=== PATIENT | male | born 1965 | race Caucasian/White ===

== ENCOUNTER 2017-11-02 05:32 | Emergency (ER) | payer OTHER ==
[2017-11-02 06:17] LABS: Absolute Lymphocytes (CBC) 1.7 K/uL (0.7-4.9); Absolute Monocytes 1.2 K/uL (0.1-1.3); Absolute Neutrophil 6.8 K/uL (1.8-8.0); Basophils % 0.6 % (0-1.3); Eosinophils % 3.3 % (0-4.4); Hematocrit 34.4 % (39.6-49.0); Lymphocytes % 16.9 % (15.3-44.8); MCH 29.9 pg (27.0-35.0); MCV 88.8 fL (80-100); MPV 7.3 fL (7.6-11.3); Monocytes % 11.7 % (3.3-12.3); RBC Red Blood Cell Count 3.88 M/uL (4.33-5.43)
[2017-11-02 06:22] LABS: Protime INR 1.04
[2017-11-02 06:28] LABS: Bicarbonate 25 mEq/L (21-31); Glucose Level 153 mg/dL (65-120); Lipase 105 U/L (22-51); Potassium 3.7 mEq/L (3.6-5.0); Sodium Level 138 mEq/L (135-145)
[2017-11-02 06:34] LABS: ALT/SGPT 16 IU/L (10-60); AST/SGOT 19 IU/L (10-42); Albumin 3.7 g/dL (3.2-5.5); Alkaline Phosphatase 45 IU/L (42-121); BUN Blood Urea Nitrogen 12 mg/dL (6-20); Bilirubin Direct < 0.1 mg/dL (0-0.2); Bilirubin Total 0.5 mg/dL (0.3-1.2); Protein, Total 7.1 g/dL (6.0-8.3)
--- NOTE | 2017-11-02 08:21 | RAD REPORT ---
EXAM DESCRIPTION: CT - Abdomen Pelvis W Contrast - 11/02/2017 7:53 am CLINICAL HISTORY: Abdominal pain, bloody stools COMPARISON: None. TECHNIQUE: Biphasic, helical CT imaging of the abdomen and pelvis was performed following 100 ml non -ionic IV contrast. Oral contrast was given. All CT scans are performed using dose optimization technique as appropriate and may include automated exposure control or mA/KV adjustment according to patient size. FINDINGS: No suspicious findings in the lung bases. The liver, spleen, and pancreas show no suspicious findings. Gallbladder and biliary tree are also wi thout suspicious finding. Symmetric renal function is seen with no hydronephrosis or suspicious renal mass. No pyelonephritis o r acute renal parenchymal process. A 3 centimeter cyst is present lower pole right kidney. Partially filled urinary bladder shows no suspicious finding. Prostate gland and seminal vesicles within normal limits. No significant adrenal finding. No gastric dilatation or wall thickening. No acute small bowel finding identifiable. There is no appe ndicitis. Minimal wall thickening near the hepatic flexure of the colon could be peristalsis artifact or a minimal colitis. There is minimal wall thickening near the splenic flexure in short segment are a of mild wall thickening in the sigmoid colon where there is also minimal stranding in the adjacent fat. Patient has numerous small central mesenteric lymph nodes as well as several small lymph nodes i n the mesenteric fat adjacent to the colon. No measurable diverticulosis pattern. No one area of foca l colon mass suspected. No free air, free fluid or pneumatosis. No other areas of inflammatory stranding. No hernia, mass or bulky lymphadenopathy. No suspicious bony findings. IMPRESSION: Mild scattered areas of colitis from the hepatic flexure to sigmoid colon. There are adj acent small mesenteric lymph nodes. No colon mass identified. No free air, abscess or other complicating factor.
--- NOTE | 2017-11-02 08:56 | ER ---
Nurse's Notes [facility] Name: Pedro Mejia Age: 52 yrs Sex: Male : 1965 Arrival Date: 11/02/2017 Time: 05:33 Bed 7 Private MD: Diagnosis: Diarrhea, unspecified Presentation: 11/02 05:43 Presenting complaint: Patient states: diarrhea and blood in stool x 3 days. Transition aa1 of care: patient was not received from another setting of care. Onset of symptoms was October 30, 2017. Initial Sepsis Screen: Does the patient meet any 2 criteria? No. Patient's initial sepsis screen is negative. Does the patient have a suspected source of infection? No. Patient's initial sepsis screen is negative. Care prior to arrival: None. 05:43 Method Of Arrival: Ambulatory aa1 05:43 Acuity: EL 3 aa1 Triage Assessment: 05:47 General: Appears in no apparent distress. comfortable, Behavior is calm, cooperative, aa1 appropriate for age. Historical: - Allergies: 05:47 No Known Allergies; aa1 - Home Meds: 05:47 Metformin Oral [Active]; aa1 - PMHx: 05:47 Hypertension; Diabetes - NIDDM; aa1 - PSHx: 05:47 None; aa1 - Immunization history:: Flu vaccine is not up to date. - Social history:: Smoking status: Patient/guardian denies using tobacco. Screenin:06 Abuse screen: Denies threats or abuse. Nutritional screening: No deficits noted. jd3 Tuberculosis screening: No symptoms or risk factors identified. Fall Risk IV access (20 points). Mental Status- Oriented to own ability (0 pts). Total Gil Fall Scale indicates No Risk (0-24 pts). Assessment: 05:50 General: Appears in no apparent distress. uncomfortable, Behavior is calm, cooperative, jd3 appropriate for age. Pain: Complains of pain in suprapubic area Quality of pain is described as crampy, pressure. Neuro: Level of Consciousness is awake, alert, obeys commands, Oriented to person, place, time, situation. Cardiovascular: Heart tones S1 S2 present Capillary refill < 3 seconds Patient's skin is warm and dry. Respiratory: Airway is patent Respiratory effort is even, unlabored, Respiratory pattern is regular, symmetrical, Breath sounds are clear bilaterally. GI: Abdomen is round Bowel sounds present X 4 quads. Abd is soft and non tender X 4 quads. Reports bloody stool, nausea. : No signs and/or symptoms were reported regarding the genitourinary system. EENT: No signs and/or symptoms were reported regarding the EENT system. Derm: Skin is intact, Skin is dry, Skin is normal, Skin temperature is warm. Musculoskeletal: Circulation, motion, and sensation intact. Range of motion: intact in all extremities. 06:05 Reassessment: CT notified of pt finishing oral contrast. jd3 07:00 Reassessment: Patient appears in no apparent distress at this time. Patient and/or hb family updated on plan of care and expected duration. Pain level reassessed. Patient is alert, oriented x 3, equal unlabored respirations, skin warm/dry/pink. 08:33 Reassessment: Patient appears in no apparent distress at this time. Patient is alert, sg oriented x 3, equal unlabored respirations, skin warm/dry/pink. taryn STRICKLAND at bedside updating pt and pt family on results and POC at this time, awaiting dispo orders, will continue to monitor. Vital Signs: 05:47 BP 155 / 101; Pulse 95; Resp 18; Temp 98.3; Pulse Ox 97% on R/A; Weight 124.74 kg; aa1 Height 6 ft. 0 in. (182.88 cm); Pain 2/10; 07:00 BP 151 / 100; Pulse 85; Resp 17; Pulse Ox 96% on R/A; sg 07:37 BP 148 / 82; Pulse 82; Resp 15; Pulse Ox 100% on R/A; hb 09:00 BP 135 / 89; Pulse 75; Resp 16; Pulse Ox 97% on R/A; Pain 0/10; sg 05:47 Body Mass Index 37.30 (124.74 kg, 182.88 cm) aa1 ED Course: 05:33 Patient arrived in ED. al2 05:45 Raúl Cuevas, JOAQUINA is Primary Nurse. jd3 05:45 Triage completed. aa1 05:47 Arm band placed on right wrist. Patient placed in an exam room, on a stretcher. aa1 05:55 Inserted saline lock: 20 gauge in right antecubital area, using aseptic technique. jd3 Blood collected. 06:00 Taryn Bateman NP is PHCP. pm1 06:00 Vaibhav Gardner MD is Attending Physician. pm1 06:06 Patient has correct armband on for positive identification. Bed in low position. Call jd3 light in reach. Side rails up X 1. Adult w/ patient. 07:31 Primary Nurse role handed off by Raúl Cuevas, JOAQUINA 07:31 Bridger Nelson, RN is Primary Nurse. sg 07:50 CT completed. Patient tolerated procedure well. Patient moved to CT via wheelchair. vm2 Patient moved back from CT. 07:53 CT Abd/Pelvis - W/Contrast In Process Unspecified. EDMS 08:32 Awaiting radiology results. sg 08:56 Kahlil Mccrary MD is Referral Physician. pm1 09:03 No provider procedures requiring assistance completed. IV discontinued, intact, hb bleeding controlled, No redness/swelling at site. Pressure dressing applied. Administered Medications: No medications were administered Outcome: 08:56 Discharge ordered by MD. pm1 09:03 Discharged to home ambulatory, with significant other. hb 09:03 Condition: stable 09:03 Discharge instructions given to patient, significant other, Instructed on discharge instructions, follow up and referral plans. medication usage, Demonstrated understanding of instructions, follow-up care, medications, Prescriptions given X 1. 09:04 Patient left the ED. hb Signatures: Dispatcher [employer] EDMO Bridger Nelson, RN JOAQUINA Delphine Jacobson RN RN aa1 Taryn Bateman NP COUTURIERE pm1 Latonya Johnson RN RN Joslyn Ruffin 2 Raúl Cuevas RN RN jd3 Love, Angelica al2
--- NOTE | 2017-11-02 08:56 | EDPHYS ---
Physician Documentation [facility] Name: Pedro Mejia Age: 52 yrs Sex: Male : 1965 Arrival Date: 11/02/2017 Time: 05:33 Bed 7 Private MD: ED Physician Vaibhav Gardner HPI: 11/02 06:21 This 52 yrs old Male presents to ER via Ambulatory with complaints of Bloody pm1 diarrhea. 06:22 The patient presents to the emergency department with diarrhea, 6 times today. Onset: pm1 The symptoms/episode began/occurred 3 day(s) ago. Possible causes: unknown. The symptoms are aggravated by nothing. The symptoms are alleviated by nothing. Associated signs and symptoms: Pertinent positives: Abdominal cramping with bowel movement, Pertinent negatives: constipation, fever, nausea, vomiting. Severity of symptoms: in the emergency department the symptoms No pain. Lower abdominal cramping present only with diarrhea. The patient has experienced similar episodes in the past, a few times, Onset 1 year ago, 6 months, and 2-3 weeks ago that self resolved. Not evaluated by a physician. The patient has not recently seen a physician, the patient's primary care provider is Dr. Charbel Bryant. 06:22 Blood present with wiping and a drop of blood in the toilet. pm1 Historical: - Allergies: 05:47 No Known Allergies; aa1 - Home Meds: 05:47 Metformin Oral [Active]; aa1 - PMHx: 05:47 Hypertension; Diabetes - NIDDM; aa1 - PSHx: 05:47 None; aa1 - Immunization history:: Flu vaccine is not up to date. - Social history:: Smoking status: Patient/guardian denies using tobacco. ROS: 06:24 Constitutional: Negative for fever, chills, and weight loss, Eyes: Negative for injury, pm1 pain, redness, and discharge, ENT: Negative for injury, pain, and discharge, Neck: Negative for injury, pain, and swelling, Cardiovascular: Negative for chest pain, palpitations, and edema, Respiratory: Negative for shortness of breath, cough, wheezing, and pleuritic chest pain. 06:24 Back: Negative for injury and pain, : Negative for injury, bleeding, discharge, and swelling, MS/Extremity: Negative for injury and deformity, Skin: Negative for injury, rash, and discoloration, Neuro: Negative for headache, weakness, numbness, tingling, and seizure. 06:24 Abdomen/GI: Positive for abdominal cramps, with diarrhea episodes, Negative for nausea and vomiting, constipation. Exam: 06:26 Constitutional: This is a well developed, well nourished patient who is awake, alert, pm1 and in no acute distress. Head/Face: Normocephalic, atraumatic. Eyes: Pupils equal round and reactive to light, extra-ocular motions intact. Lids and lashes normal. Conjunctiva and sclera are non-icteric and not injected. Cornea within normal limits. Periorbital areas with no swelling, redness, or edema. ENT: Nares patent. No nasal discharge, no septal abnormalities noted. Tympanic membranes are normal and external auditory canals are clear. Oropharynx with no redness, swelling, or masses, exudates, or evidence of obstruction, uvula midline. Mucous membranes moist. Neck: Trachea midline, no thyromegaly or masses palpated, and no cervical lymphadenopathy. Supple, full range of motion without nuchal rigidity, or vertebral point tenderness. No Meningismus. Chest/axilla: Normal chest wall appearance and motion. Nontender with no deformity. No lesions are appreciated. Cardiovascular: Regular rate and rhythm with a normal S1 and S2. No gallops, murmurs, or rubs. Normal PMI, no JVD. No pulse deficits. Respiratory: Lungs have equal breath sounds bilaterally, clear to auscultation and percussion. No rales, rhonchi or wheezes noted. No increased work of breathing, no retractions or nasal flaring. 06:26 Back: No spinal tenderness. No costovertebral tenderness. Full range of motion. Skin: Warm, dry with normal turgor. Normal color with no rashes, no lesions, and no evidence of cellulitis. MS/ Extremity: Pulses equal, no cyanosis. Neurovascular intact. Full, normal range of motion. 06:26 Abdomen/GI: Inspection: abdomen appears normal, Bowel sounds: normal, in all quadrants, Palpation: abdomen is soft and non-tender, mass, is not appreciated, rebound tenderness, is not appreciated. 06:26 Neuro: Orientation: is normal, Mentation: is normal, Motor: is normal, moves all fours, Sensation: is normal, no obvious gross deficits. Vital Signs: 05:47 BP 155 / 101; Pulse 95; Resp 18; Temp 98.3; Pulse Ox 97% on R/A; Weight 124.74 kg; aa1 Height 6 ft. 0 in. (182.88 cm); Pain 2/10; 07:00 BP 151 / 100; Pulse 85; Resp 17; Pulse Ox 96% on R/A; sg 07:37 BP 148 / 82; Pulse 82; Resp 15; Pulse Ox 100% on R/A; hb 09:00 BP 135 / 89; Pulse 75; Resp 16; Pulse Ox 97% on R/A; Pain 0/10; sg 05:47 Body Mass Index 37.30 (124.74 kg, 182.88 cm) aa1 MDM: 06:21 Patient medically screened. pm1 08:55 Data reviewed: vital signs. Data interpreted: Pulse oximetry: on room air is 100 %. pm1 Interpretation: normal. Counseling: I had a detailed discussion with the patient and/or guardian regarding: the historical points, exam findings, and any diagnostic results supporting the discharge/admit diagnosis, lab results, radiology results, the need for outpatient follow up, to return to the emergency department if symptoms worsen or persist or if there are any questions or concerns that arise at home. 11/02 05:43 Order name: Basic Metabolic Panel; Complete Time: 06:39 rn 11/02 05:43 Order name: CBC with Diff; Complete Time: 06:27 rn 11/02 05:43 Order name: Creatinine for Radiology; Complete Time: 06:27 rn 11/02 05:43 Order name: Hepatic Function; Complete Time: 06:39 rn 11/02 05:43 Order name: Lipase; Complete Time: 06:39 rn 11/02 05:43 Order name: IV Saline Lock; Complete Time: 06:01 rn 11/02 05:43 Order name: Labs collected and sent; Complete Time: 06:01 rn 11/02 05:43 Order name: CT Abd/Pelvis - W/Contrast; Complete Time: 08:25 rn 11/02 05:44 Order name: PT-INR; Complete Time: 06:27 rn 11/02 05:44 Order name: Ptt, Activated; Complete Time: 06:27 rn Administered Medications: No medications were administered Disposition: 19:34 Co-signature as Attending Physician, Vaibhav Gardner MD. rn Disposition: 11/02/17 08:56 Discharged to Home. Impression: Diarrhea, unspecified. - Condition is Stable. - Discharge Instructions: Food Choices to Help Relieve Diarrhea, Adult, Diarrhea. - Prescriptions for Bentyl 20 mg Oral Tablet - take 1 tablet by ORAL route every 6 hours As needed; 20 tablet. - Work release form, Medication Reconciliation Form, Thank You Letter, Antibiotic Education form. - Follow up: Emergency Department; When: As needed; Reason: Worsening of condition. Follow up: Kahlil Mccrary MD; When: 2 - 3 days; Reason: Recheck today's complaints, Continuance of care, Re-evaluation by your physician. - Problem is new. - Symptoms have improved. Signatures: Dispatcher [employer] EDMS Delphine Jacobson RN RN aa1 Vaibhav Gardner MD MD rn Jose Bateman, EM CLINICAL DIETETIC TECHNICIAN pm1 Latonya Johnson RN RN hb Corrections: (The following items were deleted from the chart) 09:04 08:56 11/02/2017 08:56 Discharged to Home. Impression: Diarrhea, unspecified. Condition hb is Stable. Forms are Medication Reconciliation Form, Thank You Letter, Antibiotic Education, Prescription Opioid Use. Follow up: Emergency Department; When: As needed; Reason: Worsening of condition. Follow up: Kahlil Mccrary; When: 2 - 3 days; Reason: Recheck today's complaints, Continuance of care, Re-evaluation by your physician. Problem is new. Symptoms have improved. pm1
[2017-11-02 09:11] VITALS: TEMP 98.3
[2017-11-02 09:14] VITALS: BP 135/89; O2SAT 97
== END 2017-11-02 09:04 | disposition home or self-care (01) ==
LOC: ER 05:32
DX: R19.7 Diarrhea, unspecified (principal); I10 Essential (primary) hypertension; E11.9 Type 2 diabetes mellitus without complications
CPT/HCPCS: 36415; 74177; 80048; 80076; 83690; 85025; 85610; 85730; 99284; Q9967

== ENCOUNTER 2024-10-09 16:45 | Inpatient (IN) | payer BC, OTHER ==
--- OUTSIDE RECORDS SUMMARY | 2024-10-09 16:48 | XMS REPORT | Continuity of Care Document ---
Author Name Unknown Address [address] [facility] [address] [place] [address] [facility] Address [address] [facility] [place] [address] Care Team Providers Care Generator Assembler Name Role Phone Lab, Adc Fam Pob I Attending Clinician Unavailab Gopi Howell Attending Clinician [phone] GOPI JOE Attending Clinician Unavailable Raj Colon MD Attending Clinician [phone] RAJ COLON Attending Clinician Unavailable Savanah Patterson MD Attending Clinician [phone] Doctor Unassigned, [place] Attending Clinician U Daphne Nguyen Attending Clinician [phone] DAPHNE LOMBARDI Attending Clinician Unavailable Payers Payer Name Policy Type Policy Number Effective Date Expirati on Date Source Problems Condition Name Condition Details Condition Category Status Onset Date Resolution Date Last Treatment Date Treating Clinician Comments Source R06.02-TRIP RTNESS OF BREATH R06.02-TRIP RTNESS OF BREATH Active 05/14/2019 [facility] Active 2018-06 00:00: 00 2019-06-04 12:08:00 Yaa Montelongo Allergies, Adverse Reactions, Alerts Allergy Name Allergy Type Status Severity Reaction(s) Onset Date Inactive Date Treating Clinician Comments Source NO KNOWN ALLERGIE S Drug Class Active [facility] Social History Social Habit Start Date Stop Date Quantity Comments Source Exposure to SARS-CoV-2 (event) Yes [facility] Sex Assigned At 1965 00:00:00 1965 00:00:00 [facility] Smoking Status Start Date Stop Date Source Unknown if ever smoked [facility] Vital Signs Vital Name Observation Time Observation Value Comments S ource Height 2019-06-04 18:42:00 182.88 cm [facility] Weight 2019-06-04 18:42:00 [facility] [place] BMI Calculated 2019-06-04 18:42:00 [facility] Procedures Procedure Date / Time Performed Performing Clinicia n Source ASSIGNMENT OF BENEFITS 2021-01-17 15:01:33 Docto r Unassigned, [place] [facility] Encounters Start Date/Time End Date/Time Encounter Type Admission Type Attending [facility] Care Department Encounter ID Source 2021-01-23 10:12:55 2021-01-23 10:32:55 Laboratory Only Lab, Adc Fam Pob I Kirk [facility] [address] .[id number] [facility] 2021-01-23 10:00:00 2021-01-23 10:00:00 Outpatient Alexis JOE GOPI [facility] [id number] [facility] 2021-01-20 10:00:23 2021-01-20 10:20:23 Laboratory Only Lab, [facility] Fam Pob I Rakesh [facility] .[id number] [facility] 2021-01-20 10:00:00 2021-01-20 10:00:00 Outpatient Alexis COLON RAJ [facility] [id number] [facility] 2021-01-17 10:02:36 2021-01-17 10:22:36 Laboratory Only Lab, Adc Fam Pob Savanah Murphy [facility] [address] .[id number] [facility] 2021-01-17 10:00:00 2021-01-17 10:00:00 Outpatient R [facility] [id number] [facility] 2021-01-17 00:00:00 2021-01-17 00:00:00 Orders Only Doctor Unassigned, [place] [facility] 1..840.114 [id number] [facility] 2020-10-07 10:52:28 2020-10-07 11:12:28 Laboratory Only Lab, Adc Fam Pob I Daphne Lombardi [facility] One [id number]..840.114 [id number] [facility] 2020-10-07 11:00:00 2020-10-07 11:00:00 Outpatient R DAPHNE LOMBARDI [facility] [id number] [facility] 2019-06-04 17:52:00 2019-06-05 05:59:00 Outpatient nullFlavo r [facility] [id number] 00 Yaa Montelongo 2019-06-04 11:52:00 2019-06-04 11:52:00 Outpatient [facility] [address] [place], [place] [address]ita l
[2024-10-09 17:25] LABS: Absolute Basophils 0.1 K/uL (0-0.5); Absolute Eosinophils 0.1 K/uL (0-0.5); Absolute Lymphocytes (CBC) 1.2 K/uL (0.7-4.9); Absolute Monocytes 0.9 K/uL (0.1-1.3); Absolute Neutrophil 12.8 K/uL (1.8-8.0); Basophils % 0.3 % (0-1.3); Eosinophils % 0.9 % (0-4.4); Hematocrit 40.2 % (39.6-49.0); Hemoglobin 13.5 g/dL (13.6-17.9); Lymphocytes % 7.8 % (15.3-44.8); MCH 31.1 pg (27.0-35.0); MCHC 33.5 g/dL (32.0-36.0); MCV 92.6 fL (80-100); MPV 7.1 fL (7.6-11.3); Monocytes % 5.7 % (3.3-12.3); Neutrophils % 85.3 % (41.7-73.7); Nucleated Red Blood Cells % 0.1 % (0-0); Platelets 516 thou/uL (152-406); RBC Red Blood Cell Count 4.34 M/uL (4.33-5.43); Red Cell Distribution Width 14.7 % (12.1-15.2)
[2024-10-09 17:31] LABS: D-Dimer 0.65 FEUug/mL (0-0.500); PT Prothrombin Time 12.8 SECONDS (10-13.0); Protime INR 1.13
[2024-10-09] MEDS ORDERED: ACETAMINOPHEN 500 MG TAB ONE (17:31)
[2024-10-09 17:53] LABS: ALT/SGPT 39 U/L (16-61); AST/SGOT 38 U/L (15-37); Albumin 3.9 g/dL (3.4-5.0); Alkaline Phosphatase 46 U/L (45-117); Anion Gap 9.2 mEq/L (5.0-15.0); BUN Blood Urea Nitrogen 27 mg/dL (7-18); Bicarbonate 27 mEq/L (21-32); Bilirubin Total 0.3 mg/dL (0.2-1.0); Globulin 3.8 g/dL (2.3-3.5); Glomerular Filtration Rate 80 ml/min (=/>90); Glucose Level 145 mg/dL (74-106); NT PRO-BNP 237 pg/mL (<125); Potassium 4.2 mEq/L (3.5-5.1); Protein, Total 7.7 g/dL (6.4-8.2); Sodium Level 139 mEq/L (136-145)
[2024-10-09 17:56] LABS: Bilirubin Direct < 0.2 mg/dL (0-0.2); Bilirubin Indirect, Calculated 0.1 mg/dL (0.2-0.8)
[2024-10-09 18:00] LABS: Troponin High Sensitivity 1451.8 pg/mL (<58.9)
--- NOTE | 2024-10-09 18:02 | RAD REPORT ---
Procedure: Chest Single View HISTORY: Chest pain COMPARISON: 2017 FINDINGS: The lungs appear clear of acute infiltrate. No significant pleural effusion noted. The heart is normal size. IMPRESSION: No acute abnormality is displayed.
[2024-10-09] MEDS ORDERED: HEPARIN/D5W 25,000 UNIT/500 ML BAG IV ONE (18:22)
--- NOTE | 2024-10-09 19:18 | ER ---
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 bp Coronavirus screen: At this time, the client does not indicate any symptoms associated with coronavirus-19. Ebola Screen: No symptoms or risks identified at this time. Initial Sepsis Screen: Does the patient meet any 2 criteria? No. Patient's initial sepsis screen is negative. Does the patient have a suspected source of infection? No. Patient's initial sepsis screen is negative. Risk Assessment: Do you want to hurt yourself or someone else? Patient reports no desire to harm self or others. Onset of symptoms was October 09, 2024 at 16:00. Care prior to arrival: Medication(s) given: ASA, 81 mg, x 4, IV initiated. 20 GA, in the right antecubital area. 16:54 Method Of Arrival: EMS: [facility] bp 16:54 Acuity: EL 3 bp Triage Assessment: 16:55 General: Appears in no apparent distress. comfortable, Behavior is calm, cooperative, bp appropriate for age. Pain: Complains of pain in back. EENT: No deficits noted. Neuro: No deficits noted. Cardiovascular: No deficits noted. Respiratory: No deficits noted. GI: No signs and/or symptoms were reported involving the gastrointestinal system. : No signs and/or symptoms were reported regarding the genitourinary system. Derm: No deficits noted. Musculoskeletal: Circulation, motion, and sensation intact. Historical: - Allergies: 16:55 No Known Allergies; bp - PMHx: 16:55 Diabetes - NIDDM; Hypertension; bp - Immunization history:: Adult Immunizations up to date. - Infectious Disease History:: Denies. - Social history:: Smoking status: Patient denies any tobacco usage or history of. Screenin:[facility] ED Fall Risk Assessment (Adult) History of falling in the last 3 months, bp including since admission No falls in past 3 months (0 pts) Confusion or Disorientation No (0 pts) Intoxicated or Sedated No (0 pts) Impaired Gait No (0 pts) Mobility Assist Device Used No (0 pt) Altered Elimination No (0 pt) Score/Fall Risk Level 0 - 2 = Low Risk Oriented to surroundings. Abuse screen: Denies threats or abuse. Denies injuries from another. Nutritional screening: No deficits noted. Tuberculosis screening: No symptoms or risk factors identified. Assessment: 17:02 General: Appears in no apparent distress. comfortable, Behavior is calm, cooperative, bp appropriate for age. 17:41 Reassessment: Patient appears in no apparent distress at this time. Patient is alert, bp oriented x 3, equal unlabored respirations, skin warm/dry/pink. Neuro: Level of Consciousness is awake, alert, obeys commands, Oriented to Appropriate for age Data Steward are equal bilaterally. Vital Signs: 16:54 BP 140 / 70; Pulse 87; Resp 16; Temp 98; Pulse Ox 98% ; bp 17:40 BP 114 / 67; Pulse 94; Resp 16; Pulse Ox 99% ; Weight 86.18 kg; bp 18:34 BP 116 / 75; Pulse 98; Resp 16; Pulse Ox 98% ; bp 20:56 BP 126 / 80; Pulse 77; Resp 16 S; Pulse Ox 98% on R/A; lg3 ED Course: 16:54 Patient arrived in ED. bp 16:55 Mason Cordero MD is Attending Physician. jr11 16:55 Triage completed. bp 16:55 Arm band placed on. bp 17:01 Patient has correct armband on for positive identification. bp 17:01 Maintain EMS IV. Dressing intact. Good blood return noted. Site clean \T\ dry. Gauge \T\ bp site: 20 RAC. Flushed with 10 mL NS. 17:02 Del Sanders, RN is Primary Nurse. bp 17:14 Initial lab(s) drawn, by me, sent to lab. bp 17:58 XRAY Chest (1 view) In Process Unspecified. EDMS 18:06 called Cardiology to page provider. sp 19:09 paged Cardiology again for Dr. Cordero. sp 19:17 Maxi West MD is Hospitalizing Provider. jr11 20:13 Primary Nurse role handed off by Del Sanders, RN rv1 21:18 Provided Education on: plan of care, admission for heart cath in am. lg3 21:18 No provider procedures requiring assistance completed. Patient admitted, IV remains in lg3 place. Administered Medications: 17:30 Drug: Acetaminophen PO 1000 mg PO once Route: PO; bp 19:00 Follow up: Response: No adverse reaction lg3 18:40 Drug: Heparin ([place] Drip) 12 units/kg/hr - ([place] [address] units, D5W IV 500 ml) IV at bp calculated rate Per protocol; Max initial rate 1000 units/hr {Co-Signature: anderson (Cyndi Fung RN).} Route: IV; Rate: calculated rate; Site: right forearm; 21:18 Follow up: IV Status: Infusion continued upon admission lg3 Medication: 21:18 VIS not applicable for this client. lg3 Outcome: 19:18 Decision to Hospitalize by Provider. jr11 21:56 Admitted to Med/surg accompanied by tech, via wheelchair, lg3 21:56 Condition: stable 21:56 Instructed on the need for admit, Demonstrated understanding of instructions, 22:44 Patient left the ED. dd2 Signatures: Dispatcher [employer] EDMS Yolie Nelson Brian, RN RN bp AblePearl RN RN lg3 Mason Cordero MD MD jr11 Jennifer Harden rv1 HANANE JASMINE RN RN dd2 Cyndi Fung RN Corrections: (The following items were deleted from the chart) 18:33 17:40 BP 114 / 67; Pulse 94bpm; Resp 16bpm; Pulse Ox 99%; bp bp
--- NOTE | 2024-10-09 19:18 | EDPHYS ---
Physician Documentation [facility] Name: Pedro Mejia Age: 58 yrs Sex: Male : 1965 Arrival Date: 10/09/2024 Time: 16:45 Bed 2 Private MD: ED Physician Mason Cordero HPI: 10/09 17:35 Chief Complaint: Severe stabbing pain in the mid-back radiating to the chest and arms, jr11 with associated shortness of breath. History of Present Illness: The patient, a 58-year-old male, experienced a sudden onset of severe stabbing, sharp pain in the mid-back about an hour prior to arrival. The pain radiated to the front of the chest and down the arms. He reported a shortness of breath during the episode. The pain persisted for approximately four to seven minutes initially. 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 He awoke with the pain, which was intense enough to cause him to sweat. The pain improved with aspirin (324 mg) but remained present at a moderate level of 3-4 on a pain scale of 0-10. The patient described the pain as manageable with [id number] medication, such as Advil. He had no associated vomiting and reported no change in pain with movement or palpation. Review of Systems: - Positive for shortness of breath, sweating, and radiating pain to the arms. - Negative for vomiting and musculoskeletal pain changes. - ROS otherwise negative. . Historical: - Allergies: 16:55 No Known Allergies; bp - PMHx: 16:55 Diabetes - NIDDM; Hypertension; bp - Immunization history:: Adult Immunizations up to date. - Infectious Disease History:: Denies. - Social history:: Smoking status: Patient denies any tobacco usage or history of. Exam: 17:35 Constitutional: This is a well developed, well nourished patient who is awake, alert, jr11 and in no acute distress. Head/Face: Normocephalic, atraumatic. Eyes: Extra-ocular motions intact. Lids and lashes normal. Conjunctiva and sclera are non-icteric and not injected. Cornea within normal limits. Periorbital areas with no swelling, redness, or edema. ENT: Nares patent. No nasal discharge, no septal abnormalities noted. Oropharynx with no redness, swelling, or masses, exudates, or evidence of obstruction, uvula midline. Mucous membranes moist. Neck: Trachea midline, no thyromegaly or masses palpated, and no cervical lymphadenopathy. Supple, full range of motion without nuchal rigidity, or vertebral point tenderness. No Meningismus. Chest/axilla: Normal chest wall appearance and motion. Nontender with no deformity. No lesions are appreciated. Cardiovascular: Regular rate and rhythm with a normal S1 and S2. No gallops, murmurs, or rubs. Normal PMI, no JVD. No pulse deficits. Respiratory: Lungs have equal breath sounds bilaterally, clear to auscultation and percussion. No rales, rhonchi or wheezes noted. No increased work of breathing, no retractions or nasal flaring. Abdomen/GI: Soft, non-tender, with normal bowel sounds. No distension or tympany. No guarding or rebound. No evidence of tenderness throughout. Back: No spinal tenderness. No costovertebral tenderness. Full range of motion. Skin: Warm, dry with normal turgor. Normal color with no rashes, no lesions, and no evidence of cellulitis. MS/ Extremity: Pulses equal, no cyanosis. Neurovascular intact. Full, normal range of motion. Neuro: Awake and alert, GCS 15, oriented to person, place, time, and situation. No gross motor or sensory deficits. Vital Signs: 16:54 BP 140 / 70; Pulse 87; Resp 16; Temp 98; Pulse Ox 98% ; bp 17:40 BP 114 / 67; Pulse 94; Resp 16; Pulse Ox 99% ; Weight 86.18 kg; bp 18:34 BP 116 / 75; Pulse 98; Resp 16; Pulse Ox 98% ; bp 20:56 BP 126 / 80; Pulse 77; Resp 16 S; Pulse Ox 98% on R/A; lg3 MDM: 16:56 Medical Screening Exam initiated jr11 17:35 Differential diagnosis: Medical Decision Making: The differential diagnosis includes jr11 musculoskeletal strain, myocardial infarction due to the nature of the pain and associated symptoms, aortic dissection due to the sudden onset and severe nature of the pain, and pulmonary embolism considering the shortness of breath. Despite normal blood pressure readings and the absence of a STEMI on the ECG, cardiac etiology cannot be ruled out given the presentation. The plan involves further investigation with blood work, chest X-ray, and potentially additional imaging to rule out life-threatening conditions. Plan: - Obtain blood work, including cardiac markers, and repeat in two hours if initial results are negative. - Perform a chest X-ray to evaluate for any acute pulmonary or cardiac causes. - Consider further imaging, such as a CT scan, if indicated by initial findings. - Monitor the patient's vital signs and symptoms closely in the ED. - Provide pain management as needed with non-opioid analgesics like Advil. - Educate the patient on the symptoms of myocardial infarction and ensure he understands the importance of follow-up care. 18:01 ED course: EKG interpreted by me shows normal sinus rhythm, normal axis, normal jr11 intervals, no acute ST changes environmental monitoring technician interpreted by me shows normal sinus rhythm rate of 75. There is slight ST elevation in 2, less than 1 mm, less than 1 mm and 3, no reciprocal changes. 19:16 ED course: Critical care time documented 31 minutes for multiple evaluations, non-ST jr11 elevation OK, family interventions, documentation, speaking with consultants. Dr. West to accept for admission, patient now on a heparin drip. Patient denies any chest pain and has been instructed to let us know if he has pain. 10/09 17:04 Order name: Basic Metabolic Panel; Complete Time: 18:02 jr11 10/09 17:04 Order name: CBC with Diff jr11 10/09 17:04 Order name: D-Dimer; Complete Time: 17:34 11 10/09 17:04 Order name: LFT's; Complete Time: 18:02 11 10/09 17:04 Order name: Magnesium; Complete Time: 18:02 11 10/09 17:04 Order name: NT PRO-BNP; Complete Time: 18:02 11 10/09 17:04 Order name: PT-INR; Complete Time: 17:34 jr11 10/09 17:04 Order name: Troponin HS; Complete Time: 18:02 jr11 10/09 18:28 Order name: Troponin HS; Complete Time: 19:46 jr11 10/09 19:31 Order name: CBC with Automated Diff EDMS 10/09 19:31 Order name: CBC with Automated Diff EDMS 10/09 19:31 Order name: Comprehensive Metabolic Panel EDMS 10/09 19:31 Order name: Comprehensive Metabolic Panel EDMS 10/09 19:31 Order name: Troponin High Sensitivity [facility] 10/09 19:31 Order name: Troponin High Sensitivity [facility] 10/09 19:31 Order name: Troponin High Sensitivity [facility] 10/09 19:31 Order name: Troponin High Sensitivity [facility] 10/09 19:33 Order name: Lipid Profile [facility] 10/09 19:33 Order name: Hemoglobin A1c [facility] 10/09 21:56 Order name: CBC Smear Scan [facility] 10/09 17:04 Order name: XRAY Chest (1 view); Complete Time: 18:02 [facility] 10/09 19:34 Order name: Echo with Doppler [facility] 10/09 20:51 Order name: CT [facility] 10/09 18:28 Order name: EKG; Complete Time: 18:28 [facility] 10/09 17:04 Order name: Cardiac monitoring; Complete Time: 17:07 [facility] 10/09 17:04 Order name: EKG - Nurse/Tech; Complete Time: 17:40 [facility] 10/09 17:04 Order name: IV Saline Lock; Complete Time: 17:07 [facility] 10/09 17:04 Order name: Labs collected and sent; Complete Time: 17:14 [facility] 10/09 17:04 Order name: O2 Per Protocol; Complete Time: 17:07 [facility] 10/09 17:04 Order name: O2 Sat Monitoring; Complete Time: 17:08 [facility] Administered Medications: 17:30 Drug: Acetaminophen PO 1000 mg PO once Route: PO; bp 19:00 Follow up: Response: No adverse reaction lg3 18:40 Drug: Heparin ([place] Drip) 12 units/kg/hr - ([place] [address] units, D5W IV 500 ml) IV at bp calculated rate Per protocol; Max initial rate 1000 units/hr {Co-Signature: iw (Cyndi Fugn RN).} Route: IV; Rate: calculated rate; Site: right forearm; 21:18 Follow up: IV Status: Infusion continued upon admission lg3 Disposition Summary: 10/09/24 19:18 Hospitalization Ordered Notes: Hospitalization Status: Inpatient Admission [facility] Provider: Maxi West Location: Telemetry/MedSur (Inpatient) [facility] Condition: Stable [facility] Problem: new [facility] Symptoms: are unchanged [facility] Bed/Room Type: Standard [facility] Room Assignment: 219(10/09/24 20:16) rv1 Diagnosis - Subsequent non-ST elevation (NSTEMI) myocardial infarction jr11 Forms: - Medication Reconciliation Form jr11 - SBAR form jr11 - Leadership Thank You Letter jr11 Signatures: Dispatcher [employer] EDeDl Cheung, RN RN Mason Cifuentes MD MD jr11 Jennifer Harden rv1 Pearl Toscano RN lg3 Cyndi Fung RN iw Corrections: (The following items were deleted from the chart) 17:05 17:05 BASIC METABOLIC PANEL+C.LAB.BRZ ordered. EDMS EDMS 17:05 17:05 CBC+H.LAB.BRZ ordered. EDMS EDMS 17:05 17:05 D-DIMER+COAG.LAB.BRZ ordered. EDMS EDMS 17:05 17:05 HEPATIC FUNCTION+C.LAB.BRZ ordered. EDMS EDMS 17:05 17:05 MAGNESIUM+C.LAB.BRZ ordered. EDMS EDMS 17:05 17:05 PROBNP+C.LAB.BRZ ordered. EDMS EDMS 17:05 17:05 PROTIME (+INR)+COAG.LAB.BRZ ordered. EDMS EDMS 17:05 17:05 Troponin High Sensitivity+C.LAB.BRZ ordered. EDMS EDMS 17:05 17:05 Chest Single View+RAD.RAD.BRZ ordered. EDMS EDMS 19:48 19:48 Chest Angio+CT.RAD.BRZ ordered. EDMS EDMS 20:16 19:18 jr11 rv1
--- NOTE | 2024-10-09 19:25 | P.HP ---
Certification for Inpatient Patient admitted to: Inpatient With expected LOS: >2 Midnights Practitioner: I am a practitioner with admitting privileges, knowledge of patient current condition, hospital course, and medical plan of care. Services: Services provided to patient in accordance with Admission requirements found in Title 42 Section 412.3 of the Code of Federal Regulations Patient History Date of Service: 10/10/24 Reason for admission: CP History of Present Illness: 58-year-old male with past medical history of hypertension, diabetes, hyperlipidemia was brought to ER with chest pain, sudden onset , Severe stabbing type of pain in the mid-back radiating to the chest and arms, with associated shortness of breath. The pain radiated to the front of the chest and down the arms. He reported a shortness of breath during the episode. The pain persisted for approximately four to seven minutes initially. He was sleeping in an office chair at the time of onset. He awoke with the pain, which was intense enough to cause him to sweat. Patient described the pain as manageable with Advil. He had no associated vomiting and reported no change in pain with movement or palpation. Denies any fever or chills. No nausea vomiting or diarrhea. Denies any cough. No sick contacts. No recent travel from Patient was assessed in the ER and was admitted for further management of possible NSTEMI Allergies No Known Allergies Allergy (Verified 10/09/24 23:20) Home medications list reviewed: Yes Home Medications: NK [No Home Meds] 10/09/24 - Past Medical/Surgical History Diabetic: No Past Medical History: Reviewed- Non-Contributory -: HTN -: former ETOH abuse -: GERD -: hyperlipidemia Past Surgical History: Reviewed- Non-Contributory - Family History Father -: Stroke Mother -: Cancer Notes: breast cancer. also sister - Social History Smoking Status: Never smoker Alcohol use: Yes CD- Drugs: No Caffeine use: Yes Review of Systems 10-point ROS is otherwise unremarkable Physical Examination - Vital Signs Temperature: 98 F Blood Pressure: 140/70 Pulse: 86 Respirations: 18 Pulse Ox (%): 94 - Physical Exam General: Alert, Oriented x3, Mild distress HEENT: Atraumatic, Normocephalic Neck: Supple Respiratory: Clear to auscultation bilaterally, Normal air movement Cardiovascular: No edema, Regular rate/rhythm, Normal S1 S2 Capillary refill: <2 Seconds Gastrointestinal: Soft and benign, W/out hepatosplenomegaly Musculoskeletal: No clubbing, No swelling Integumentary: No rashes, No breakdown Neurological: Normal gait, Normal speech, Normal strength at 5/5 x4 extr, Cranial nerves 3-12 intact, Normal reflexes 2+ Lymphatics: No axilla or inguinal lymphadenopathy - Studies Laboratory Data (last 24 hrs) 10/09/24 10/09/24 10/09/24 17:13 17:13 17:13 WBC 15.10 H Hgb 13.5 L Hct 40.2 Plt Count 516 H PT 12.8 INR 1.13 Sodium 139 Potassium 4.2 BUN 27 H Creatinine 1.06 Glucose 145 H Magnesium 2.0 Total Bilirubin 0.3 AST 38 H ALT 39 Alkaline Phosphatase 46 Assessment and Plan - Plan NSTEMI Will trend cardiac enzymes Will monitor telemetry Started on aspirin and statin EKG noted Will get an echocardiogram Cardiology consult Started on heparin drip Hypertension Antihypertensives titrated Continue home medications and titrate as needed Hyperlipidemia Continue statin Diabetes Insulin sliding scale Accu-Chek before every meal and at bedtime GI/DVT prophylaxis Advanced directive full code Discharge Plan: Home Plan to discharge in: 48 Hours - Advance Directives Does patient have a Living Will: No Does patient have a Durable POA for Healthcare: No - Code Status/Comfort Care Code Status: Full Code Time Spent Managing Pts Care (In Minutes): 48
[2024-10-09] MEDS ORDERED: ONDANSETRON 4 MG/2 ML VIAL IV PRN (19:26)
[2024-10-09] MEDS ORDERED: ACETAMINOPHEN 325 MG TABLET PO PRN (19:26)
[2024-10-09] MEDS ORDERED: HYDROCODONE/APAP 5/325 MG TAB PO PRN (19:29)
[2024-10-09] MEDS ORDERED: MORPHINE 2 MG/ML SYR IV PRN (19:29)
[2024-10-09] MEDS ORDERED: D10W 125 ML IV PRN (19:33)
[2024-10-09] MEDS ORDERED: GLUCAGON 1 MG/VIAL IM PRN (19:33)
--- NOTE | 2024-10-09 20:50 | RAD REPORT ---
EXAM:Chest Angio CLINICAL HISTORY: Chest pain TECHNIQUE: 100 cc 370 Isovue administered intravenously. This examination was performed according to an angiographic protocol with 3D post-processing. This involves 3D reconstructions, MIPs, volume rendered images and/or shaded surface rendering. One or more of the following dose reduction techniqu es were used: Automated exposure control, adjustment of the mA and/or kV according to patient size, and/or iterative reconstruction. Unless otherwise specified, incidental findings do not require dedic ated imaging follow-up. [id number]. COMPARISON: No prior exam. FINDINGS: A pulmonary embolus is not seen. An aortic dissection not noted. No pleural effusion. No pericardial effusion. Lungs are clear. The thoracic vertebral bodies have a H shape. This is nonspecific but can be seen with anemia. IMPRESSION: No evidence of a pulmonary embolism
[2024-10-09] MEDS: ATORVASTATIN 80 MG TAB PO SCH (21:00)
[2024-10-09 21:55] LABS: Blood Morphology Comment NOT SEEN (NOT SEEN); Platelet Estimate INCR; White Blood Cell Scan OK (OK)
[2024-10-09] MEDS ORDERED: HEPARIN/D5W 25,000 UNIT/500 ML BAG IV SCH (23:00)
[2024-10-09] MEDS: NA CHLORIDE 0.9% 1,000 ML IV SCH (23:06)
[2024-10-09 23:57] VITALS: BMI 25.7
[2024-10-10] MEDS: INSULIN REGULAR (HUMAN) 100 UNIT/ML SQ SCH
[2024-10-10 04:40] LABS: Absolute Basophils 0.1 K/uL (0-0.5); Absolute Eosinophils 0.1 K/uL (0-0.5); Absolute Lymphocytes (CBC) 1.8 K/uL (0.7-4.9); Absolute Monocytes 0.6 K/uL (0.1-1.3); Basophils % 0.8 % (0-1.3); Eosinophils % 1.2 % (0-4.4); Hematocrit 36.9 % (39.6-49.0); Hemoglobin 12.6 g/dL (13.6-17.9); Lymphocytes % 18.8 % (15.3-44.8); MCH 31.3 pg (27.0-35.0); MCHC 34.2 g/dL (32.0-36.0); MCV 91.6 fL (80-100); Neutrophils % 73.2 % (41.7-73.7); Nucleated Red Blood Cells % 0.1 % (0-0); Platelets 481 thou/uL (152-406); RBC Red Blood Cell Count 4.03 M/uL (4.33-5.43); Red Cell Distribution Width 14.5 % (12.1-15.2)
[2024-10-10 05:32] LABS: Albumin 3.4 g/dL (3.4-5.0); Anion Gap 8.8 mEq/L (5.0-15.0); Bilirubin Total 0.5 mg/dL (0.2-1.0); Globulin 3.3 g/dL (2.3-3.5); Potassium 3.8 mEq/L (3.5-5.1); Protein, Total 6.7 g/dL (6.4-8.2)
[2024-10-10] MEDS ORDERED: HEPA 1000U/500MLS 2,000 UNIT/1,000 ML BAG IV ONE (08:29)
[2024-10-10] MEDS ORDERED: HEPARIN 10,000 UNIT/10 ML VIAL IV ONE (08:30)
[2024-10-10] MEDS ORDERED: LIDOCAINE 1% 20 ML MDV ONE (08:30)
[2024-10-10] MEDS ORDERED: ATROPINE SULF 1 MG/10 ML SYR IV ONE (08:30)
[2024-10-10] MEDS ORDERED: HEPARIN 5000 UNIT/ML 1 ML VIAL ONE (08:30)
[2024-10-10] MEDS ORDERED: VERAPAMIL HCL 10 MG/4 ML VIAL IV ONE (08:30)
[2024-10-10] MEDS: ASPIRIN EC 81 MG TAB PO SCH (09:00)
[2024-10-10] MEDS: FENTANYL CITR 100 MCG/2 ML ONE (09:43)
[2024-10-10] MEDS: MIDAZOLAM HCL 2 MG/2 ML INJ ONE (09:43)
[2024-10-10] MEDS ORDERED: ASPIRIN 325 MG TAB ONE (10:31)
[2024-10-10] MEDS ORDERED: TICAGRELOR 90 MG TABLET PO ONE (10:31)
[2024-10-10] MEDS ORDERED: HEPA 1000U/500MLS 1,000 UNIT/500 ML BAG IV ONE (10:39)
--- NOTE | 2024-10-10 12:09 | P.PN ---
Date of Service: 10/10/24 Subjective [facility] today, results pending no new complaints Remain on Brilinta post heart cath ROS 10 point ROS as noted above, otherwise negative Physical Exam General: AAOx3, NAD HEENT: Atraumatic, Normocephalic Respiratory: Clear BBS, Normal air movement, on RA Cardiovascular: No edema, RRR, Normal S1 S2 Capillary refill: <2 Seconds Gastrointestinal: Soft on palpation, active Bowel sounds Musculoskeletal: No clubbing, No swelling Integumentary: No rashes, No breakdown Neurological: Normal speech, Normal strength at 5/5 x4 extr Vitals Reviewed Problem list Chest pain r/o NSTEMI Hypertension Hyperlipidemia Diabetes Assessment and Plan Chest pain r/o NSTEMI Troponin trend [id number] Continuous telemetry Continue aspirin and statin EKG noted echocardiogram ordered Cardiology following- [facility] (10/10) Tolerating heparin drip Hypertension Antihypertensives titrated Continue home medications and titrate as needed Hyperlipidemia Continue statin Diabetes Insulin sliding scale Accu-Chek before every meal and at bedtime DVT ppx heparin gtt Full code LOS 2 days Time Spent Managing Pts Care (In Minutes): 35
[2024-10-10 14:04] VITALS: O2SAT 98
[2024-10-10] MEDS: TICAGRELOR 90 MG TABLET PO SCH (20:05)
--- NOTE | 2024-10-10 23:58 | CON ---
Date of Consultation: 10/10/2024 Reason For Consultation: Non-STEMI. History Of Present Illness: 58-year-old male with history of hypertension, diabetes, dyslipidemia, b rought into the emergency room with sudden onset of severe chest pain, which radiates to the mid back and shoulders and both arms along with shortness of breath. Troponin was elevated. I was called to evaluate the patient, appeared to be non-STEMI. The patient was started on IV heparin and placed in the hospital and saw him this morning, his chest pain is resolved. Feels well and no further episod es. Past Medical History: Hypertension, former alcohol abuser, dyslipidemia. Medications: Refer reconciliation sheet for detailed list. Allergies: NO KNOWN DRUG ALLERGIES. Family History: No premature coronary artery disease or cancer. Social History: He does not smoke, used to be a drinker. Does not use any drugs. Review of Systems: All systems reviewed and they were negative except as mentioned in the HPI. Physical Examination: Vital Signs: Reviewed. Head and Neck: Pupils are equal and reactive to light. Intact eye movements. No JVD, no cervical l ymphadenopathy. Neck is supple. Thyroid is not enlarged. Lungs: Clear to auscultation bilaterally. No rhonchi, wheezing, or crackles. No accessory muscle u se. Heart: Regular rate and rhythm. No extra sounds. Abdomen: Soft, nontender. Bowel sounds positive. No organomegaly. No masses or hernia. No rigidi ty or rebound. Extremities: No edema, clubbing, cyanosis. Intact pulses. Skin: No rashes. Neurologic: Alert, awake, oriented x3. No acute focal deficits appreciated. Investigations: Troponin peaked at 7000 range. BUN is 23, creatinine 0.81, hemoglobin 12.6. Assessment And Recommendation: 1. [id number] myocardial infarction. He was on heparin drip and baby aspirin. Took him to the concrete laborer today, found severe or critical proximal left anterior descending stenosis, status post suc cessful percutaneous coronary intervention, is doing well. Continue Brilinta 90 mg twice a day. Add baby aspirin 81 mg and Lipitor 80 mg at bedtime. 2. Dyslipidemia. Continue Lipitor 80 mg at bedtime. 3. Diabetes. Sugars are acceptable. A1c is at 5.5. Continue home therapy. 4. Mildly elevated NT-proBNP, likely due to acute heart attack. We will re-evaluate with an echo as an outpatient. /RIKI Voice ID: [id number] Report ID: [id number]
--- NOTE | 2024-10-11 00:38 | OP ---
Date of Procedure: 10/10/2024 Surgeon: TEQUILA MARTINEZ Procedures Performed: 1. Selective coronary angiogram. 2. Left heart catheterization. 3. PCI of severe proximal LAD stenosis, used 3.0 x 20 mm Synergy drug-eluting stent. Indication: Non-ST elevation myocardial infarction. Access: Right radial artery 6-Honduran, closed with TR band. Complications: None. Bleeding: Less than 50 mL. Total Sedation Time: 1 hour. Description Of Procedure: After risks, benefits, and alternatives were explained, the patient agreed to procedure and signed informed consent. The patient was brought into cardiac catheterization [facility], prepped and draped in usual sterile fashion. Then, I accessed right radial artery using pedi atric micropuncture kit, placed 6-Honduran Slender sheath, and took 5-Honduran [place] 4 catheter into aort ic root, engaged left main, right coronary artery, took standard views, and catheter was pushed over the wire into the LV, measured the LVEDP. Pullback did not record any gradient, then exchanged for 6 -Honduran EBU3.5 guide, engaged left main, took run-through wire into the LAD, placed it distally, and at that time, heparin was already given and ACT is above 250 throughout the procedure, was loaded wit h Brilinta 180 and 325 mg aspirin. Using a 3.0 balloon, lesion expanded very well and then placed a 3.0 x 20 mm Synergy drug-eluting stent with excellent expansion and before the stent deployment, he h ad a brief episode of ventricular tachycardia that required unsynchronized cardioversion and he did w ell on that. After the stent deployment, the wire was removed. Final angiogram was satisfactory and then during this procedure, the machine froze 2 times requiring it to reboot the machine. However, procedure was completed successfully and final angiogram was very satisfactory and the patient was sy mptoms free. I then removed the catheter and the sheath and placed TR band with good hemostasis. Th e patient sent to the recovery in stable condition. Findings: 1. Left main, large and normal. 2. LAD, severe proximal 90% stenosis, status post successful PCI as above. Rest of the LAD is normal , normal diagonal branches. 3. Left circumflex, very large and dominant and normal. 4. RCA, small, nondominant with luminal irregularities. Conclusion: Severe proximal LAD stenosis which is the culprit, status post successful PCI. Plan: Aspirin, Brilinta, high-dose statin, and follow up on outpatient basis post discharge within a week. SR/MODL Voice ID: [id number] Report ID: [id number]
--- NOTE | 2024-10-11 07:12 | ECHO ---
HEIGHT: 6 ft 0 in WEIGHT: 190 lb 0 oz DATE OF STUDY: 10/10/[address]: Evan West DO 2-DIMENSIONAL: YES M.MODE: YES DOPPLER: YES COLOR FLOW: YES TDS: PORTABLE: YES DEFINITY: BUBBLE STUDY: DIAGNOSIS: NON ST ELEVATION MYOCARDIAL INFARCTION CARDIAC HISTORY: CATHERIZATION: YES SURGERY: NO PROSTHETIC VALVE: NO PACEMAKER: NO MEASUREMENTS (cm) DIASTOLIC (NORMALS) SYSTOLIC (NORMALS) IVSd 1.2 (0.6-1.2) LA Diam 2.9 (1.9-4.0) LVEF 55-60% LVIDd 2.9 (3.5-5.7) LVIDs 2.2 (2.0-3.5) %FS 26% LVPWd 1.2 (0.6-1.2) Ao Diam 3.2 (2.0-3.7) 2 DIMENSIONAL ASSESSMENT: RIGHT ATRIUM: NORMAL LEFT ATRIUM: NORMAL RIGHT VENTRICLE: NORMAL LEFT VENTRICLE: NORMAL TRICUSPID VALVE: NORMAL MITRAL VALVE: TRACE MITRAL REGURGITATION PULMONIC VALVE: NORMAL AORTIC VALVE: NORMAL PERICARDIAL EFFUSION: NONE AORTIC ROOT: NORMAL LEFT VENTRICULAR WALL MOTION: NORMAL DOPPLER/COLOR FLOW: SEE BELOW COMMENTS: 1. NORMAL LEFT VENTRICULAR EJECTION FRACTION 55-60% 2. NORMAL WALL MOTION 3. TRACE MITRAL REGURGITATION 4. GRADE I DIASTOLIC DYSFUNCTION TECHNOLOGIST: ERICKA GARCIA
[2024-10-11 07:37] VITALS: BP 112/65; TEMP 97.5
--- NOTE | 2024-10-11 07:38 | P.DS ---
Admission Date: 10/09/24 Discharge Date: 10/11/24 Disposition: ROUTINE DISCHARGE Discharge Condition: GOOD Reason for Admission: CP Brief History of Present Illness: Diagnosis Chest pain secondary to CAD status post PCI to LAD Diastolic CHF NSTEMI Hypertension Hyperlipidemia Diabetes HPI 10/09/2024 58-year-old male with past medical history of hypertension, diabetes, hyperlipidemia was brought to ER with chest pain, sudden onset , Severe stabbing type of pain in the mid-back radiating to the chest and arms, with associated shortness of breath. The pain radiated to the front of the chest and down the arms. He reported a shortness of breath during the episode. The pain persisted for approximately four to seven minutes initially. He was sleeping in an office chair at the time of onset. He awoke with the pain, which was intense enough to cause him to sweat. Patient described the pain as manageable with Advil. He had no associated vomiting and reported no change in pain with movement or palp ation. Denies any fever or chills. No nausea vomiting or diarrhea. Denies any cough. No sick contacts. No recent travel from Patient was assessed in the ER and was admitted for further management of possible NSTEMI Hospital Course: Pedro was admitted and treated for the following diagnosis Chest pain secondary to CAD status post PCI to LAD Diastolic CHF NSTEMI Hypertension Hyperlipidemia Diabetes Patient was evaluated for CAD/DE: Troponin trend [id number]/7015/5719, Continuous telemetry Adminstered aspirin, statin, and heparin drip EKG with no ST changes echocardiogram resulted " trace mitral regurgitation, grade 1 diastolic dysfunction, EF 55 to 60% Cardiology consulted- [facility] (10/10) Continued home medications Diabetes Mellitus managed with Insulin sliding scale, Accu-Chek before every meal and at bedtime On 10/11/24, Pedro was seen on morning rounds hemodynamically stable, chest pain and shortness of breath has resolved. Dr. Slater has evaluated and cleared for discharge. Hydrocodone, aspirin, Brilinta, Lipitor, Lopressor prescribed. Follow-up with Dr. Slater outpatient. Physical Exam General: AAOx3, NAD HEENT: Atraumatic, Normocephalic Respiratory: Clear BBS, on RA Cardiovascular: No edema, NSR, Normal S1 S2 Capillary refill: <2 Seconds Gastrointestinal: Soft on palpation, active Bowel sounds Musculoskeletal: No clubbing, No swelling Integumentary: No rashes, No breakdown Neurological: Normal speech, Normal strength at 5/5 x4 extr Vital Signs/Physical Exam: Temp Pulse Resp BP Pulse Ox 97.7 F 75 16 117/75 98 10/11/24 00:00 10/11/24 00:00 10/11/24 00:00 10/11/24 00:00 10/11/24 00:00 Laboratory Data at Discharge: WBC 9.60 thou/uL (4.3-10.9) 10/10/24 04:00 Hgb 12.6 g/dL (13.6-17.9) L 10/10/24 04:00 Hct 36.9 % (39.6-49.0) L 10/10/24 04:00 Plt Count 481 thou/uL (152-406) H 10/10/24 04:00 PT 12.8 SECONDS (10-13.0) 10/09/24 17:13 INR 1.13 10/09/24 17:13 APTT 85.8 SECONDS (27.2-37.4) H 10/10/24 07:40 Sodium 141 mEq/L (136-145) 10/10/24 04:00 Potassium 3.8 mEq/L (3.5-5.1) 10/10/24 04:00 BUN 23 mg/dL (7-18) H 10/10/24 04:00 Creatinine 0.81 mg/dL (0.70-1.30) 10/10/24 04:00 Glucose 125 mg/dL (74-106) H 10/10/24 04:00 Magnesium 2.0 mg/dL (1.6-2.4) 10/09/24 17:13 Total Bilirubin 0.5 mg/dL (0.2-1.0) 10/10/24 04:00 AST 39 U/L (15-37) H 10/10/24 04:00 ALT 32 U/L (16-61) 10/10/24 04:00 Alkaline Phosphatase 41 U/L (45-117) L 10/10/24 04:00 Triglycerides 71 mg/dL (<150) 10/09/24 16:00 Cholesterol 132 mg/dL (<200) 10/09/24 16:00 HDL Cholesterol 45 mg/dL (40-60) 10/09/24 16:00 Cholesterol/HDL Ratio 2.93 10/09/24 16:00 Home Medications: Aspirin [Aspirin EC 81 MG] 81 mg PO DAILY #30 tab 10/11/24 Atorvastatin Calcium [Lipitor] 80 mg PO BEDTIME #30 tab 10/11/24 Hydrocodone 5/APAP 325 [[place] 5/325*] 1 tab PO Q6HP PRN #20 tab 10/11/24 Metoprolol Tartrate [Lopressor*] 25 mg PO BID #60 tab 10/11/24 Ticagrelor [Brilinta*] 90 mg PO BID #60 tab 10/11/24 New Medications: Hydrocodone 5/APAP 325 [[place] 5/325*] 1 tab PO Q6HP PRN #20 tab PRN Reason: Pain Scale 5-7 (Moderate) Aspirin [Aspirin EC 81 MG] 81 mg PO DAILY #30 tab Ticagrelor [Brilinta*] 90 mg PO BID #60 tab Atorvastatin Calcium [Lipitor] 80 mg PO BEDTIME #30 tab Metoprolol Tartrate [Lopressor*] 25 mg PO BID #60 tab Physician Discharge Instructions: -DC IV and DC home -Follow-up with PCP in 1 to 2 weeks -Follow-up with Cardiology in 1 to 2 weeks -Please call Dr. Maier at [phone] if any questions regarding hospital stay -Please call nursing station at [phone] if any nursing or medication questions -Return to the emergency room if symptoms worsen Followup: Charanjit Bryant MD [Primary Care Provider] -
--- NOTE | 2024-10-16 13:03 | EKG ---
Test Date: 2024-10-09 Test Time: 23:36:54 Director Of Global Sales: DAYSI MEASUREMENT RESULTS: Intervals: Rate: 72 MD: 148 QRSD: 84 QT: 390 QTc: 427 [place]: P: 74 MD: 148 QRS: 38 T: 60 INTERPRETIVE STATEMENTS: Normal sinus rhythm ST & T wave abnormality, consider anterior ischemia Abnormal ECG Compared to ECG 10/09/2024 18:26:40 Possible ischemia now present ST (T wave) deviation still present Electronically Signed On 10-16-24 12:45:36 CDT by Ryan Montaño
--- NOTE | 2024-10-16 13:05 | EKG ---
Test Date: 2024-10-09 Test Time: 17:35:00 Manager Search Engine: BP MEASUREMENT RESULTS: Intervals: Rate: 84 VA: 156 QRSD: 84 QT: 376 QTc: 444 [place]: P: 66 VA: 156 QRS: 65 T: 64 INTERPRETIVE STATEMENTS: Sinus rhythm with premature atrial complexes Otherwise normal ECG Compared to ECG 10/03/2016 01:54:58 Atrial premature complex(es) now present Sinus tachycardia no longer present Electronically Signed On 10-16-24 12:46:05 CDT by Ryan Montaño
--- NOTE | 2024-10-16 13:05 | EKG ---
Test Date: 2024-10-09 Test Time: 18:26:40 Medical Records Secretary: ADÁN MEASUREMENT RESULTS: Intervals: Rate: 76 IA: 150 QRSD: 84 QT: 390 QTc: 438 [place]: P: 70 IA: 150 QRS: 65 T: 72 INTERPRETIVE STATEMENTS: Normal sinus rhythm ST elevation, consider early repolarization, pericarditis, or injury Abnormal ECG Compared to ECG 10/09/2024 17:35:00 ST (T wave) deviation now present Atrial premature complex(es) no longer present Electronically Signed On 10-16-24 12:45:55 CDT by Ryan Montaño
== END 2024-10-11 09:10 | disposition home or self-care (01) | DRG 322 ==
LOC: ER 16:45 → ERHOLD 19:26 → 2ND 20:38
PROVIDERS: ADMIT Emergency Medicine; ATTEND Hospitalist
PROC: 027034Z Dilation of Coronary Artery, One Artery with Drug-eluting Intraluminal Device, Percutaneous Approach (ICD-10-PCS; principal; 2024-10-10)
PROC: 4A023N7 Measurement of Cardiac Sampling and Pressure, Left Heart, Percutaneous Approach (ICD-10-PCS; 2024-10-10)
PROC: B2111ZZ Fluoroscopy of Multiple Coronary Arteries using Low Osmolar Contrast (ICD-10-PCS; 2024-10-10)
DX: I21.4 Non-ST elevation (NSTEMI) myocardial infarction (principal); I50.30 Unspecified diastolic (congestive) heart failure; I11.0 Hypertensive heart disease with heart failure; E11.9 Type 2 diabetes mellitus without complications; E78.5 Hyperlipidemia, unspecified; K21.9 Gastro-esophageal reflux disease without esophagitis; I25.10 Atherosclerotic heart disease of native coronary artery without angina pectoris
CPT/HCPCS: 36415; 71045; 71275; 76937; 80048; 80053; 80061; 80076; 82947; 83036; 83735; 83880; 84484; 85025; 85379; 85610; 85730; 92928; 93005; 93306; 93458; 94760; 96365; 96366; 99152; 99285; C1725; C1893; J0461; J1644; J1815; J2003; J2250; J3010; J7030; Q9967

== ENCOUNTER 2024-10-16 02:11 | Observation (INO) | payer BC, SELFPAY ==
--- OUTSIDE RECORDS SUMMARY | 2024-10-16 02:15 | XMS REPORT | Continuity of Care Document ---
Author Name Unknown Address [address] [place] [address] [facility] Address [address] [facility] [place] [address] Care Team Providers Care Engineer Sergeant Name Role Phone Lab, Adc Fam Pob I Attending Clinician Unavailab Gopi Howell Attending Clinician [phone] GOPI JOE Attending Clinician Unavailable Raj Colon MD Attending Clinician [phone] RAJ COLON Attending Clinician Unavailable Savanah Patterson MD Attending Clinician [phone] Doctor Unassigned, [place] Attending Clinician U Daphne Nguyen Attending Clinician [phone] DAPHNE LOMBARDI Attending Clinician Unavailable Payers Payer [...] NO KNOWN ALLERGIE S Drug Class Active [facility] Social History Social Habit Start Date Stop Date Quantity Comments Source Exposure to SARS-CoV-2 (event) Yes [facility] Sex Assigned At 1965 00:00:00 1965 00:00:00 [facility] Smoking Status Start Date Stop Date Source Unknown if ever smoked Unive [facility] Vital Signs Vital Name Observation Time Observation Value Comments S ource Height 2019-06-04 18:42:00 182.88 cm [facility] Montelongo Weight 2019-06-04 18:42:00 Ish Montelongo BMI Calculated 2019-06-04 18:42:00 [facility] Procedures Procedure Date / Time Performed Performing Clinicia n Source ASSIGNMENT OF BENEFITS 2021-01-17 15:01:33 Docto r Unassigned, Clute [facility] Encounters Start Date/Time End Date/Time Encounter Type Admission Type Attending Clinicians Care Facility Care Department Encounter ID Source 2021-01-23 10:12:55 2021-01-23 10:32:55 Laboratory Only Lab, [facility] Aramis Sanchezb Leon Joe [facility] [id number] [facility] 2021-01-23 10:00:00 2021-01-23 10:00:00 Outpatient Alexis JOE [facility] [id number] [facility] 2021-01-20 10:00:23 2021-01-20 10:20:23 Laboratory Only Lab, [facility] Aramis Colon [facility] [id number] [facility] 2021-01-20 10:00:00 2021-01-20 10:00:00 Outpatient Alexis COLON [facility] [id number] [facility] 2021-01-17 10:02:36 2021-01-17 10:22:36 Laboratory Only Lab, [facility] Aramis Sanchezb Savanah Murphy [facility] Office Building [id number] [facility] 2021-01-17 10:00:00 2021-01-17 10:00:00 Outpatient R [facility] [id number] [facility] 2021-01-17 00:00:00 2021-01-17 00:00:00 Orders Only Doctor Unassigned, Clute [facility] [id number] [facility] 2020-10-07 10:52:28 2020-10-07 11:12:28 Laboratory Only Lab, Adc Fam Pob I Daphne Lombardi [facility] One [id number] [facility] 2020-10-07 11:00:00 2020-10-07 11:00:00 Outpatient R DAPHNE LOMBARDI [facility] [id number] [facility] 2019-06-04 17:52:00 2019-06-05 05:59:00 Outpatient nullFlavo r [facility] [id number] Yaa Montelongo 2019-06-04 11:52:00 2019-06-04 11:52:00 Outpatient [facility] [id number] [facility]
[2024-10-16] MEDS ORDERED: ASPIRIN 81 MG CHEWABLE TABLET ONE (02:44)
[2024-10-16 03:03] LABS: Absolute Basophils 0.1 K/uL (0-0.5); Absolute Eosinophils 0.2 K/uL (0-0.5); Absolute Lymphocytes (CBC) 1.9 K/uL (0.7-4.9); Absolute Monocytes 0.7 K/uL (0.1-1.3); Absolute Neutrophil 5.7 K/uL (1.8-8.0); Basophils % 0.7 % (0-1.3); Eosinophils % 2.8 % (0-4.4); Hemoglobin 13.1 g/dL (13.6-17.9); Lymphocytes % 22.2 % (15.3-44.8); MCHC 33.7 g/dL (32.0-36.0); MCV 91.9 fL (80-100); MPV 7.5 fL (7.6-11.3); Monocytes % 8.3 % (3.3-12.3); PT Prothrombin Time 12.5 SECONDS (10-13.0); Platelets 569 thou/uL (152-406); Protime INR 1.1; RBC Red Blood Cell Count 4.24 M/uL (4.33-5.43); Red Cell Distribution Width 14.6 % (12.1-15.2)
[2024-10-16 03:27] LABS: ALT/SGPT 36 U/L (16-61); Albumin 3.7 g/dL (3.4-5.0); Alkaline Phosphatase 45 U/L (45-117); BUN Blood Urea Nitrogen 27 mg/dL (7-18); Bicarbonate 24 mEq/L (21-32); Bilirubin Total 0.6 mg/dL (0.2-1.0); Globulin 3.8 g/dL (2.3-3.5); Glomerular Filtration Rate 98 ml/min (=/>90); Glucose Level 107 mg/dL (74-106); NT PRO-BNP 783 pg/mL (<125); Protein, Total 7.5 g/dL (6.4-8.2); Sodium Level 139 mEq/L (136-145)
[2024-10-16 03:28] LABS: AST/SGOT 23 U/L (15-37); Bilirubin Direct < 0.2 mg/dL (0-0.2); Bilirubin Indirect, Calculated 0.4 mg/dL (0.2-0.8); Magnesium 1.9 mg/dL (1.6-2.4)
[2024-10-16 03:29] LABS: Troponin High Sensitivity 160.8 pg/mL (<58.9)
--- NOTE | 2024-10-16 03:42 | ER ---
Nurse's Notes [facility] Name: Pedro Mejia Age: 58 yrs Sex: Male : 1965 Arrival Date: 10/16/2024 Time: 02:11 Bed 16 Private MD: Charanjit Bryant B Diagnosis: Chest pain, unspecified Presentation: 10/16 02:36 Chief complaint: Patient states: Had an [place] one week ago and had a stent placed by vcJerica carlton I woke up with similar pain. Coronavirus screen: Client denies travel out of the [place] in the last 14 days. At this time, the client does not indicate any symptoms associated with coronavirus-19. Ebola Screen: Patient negative for fever greater than or equal to 101.5 degrees Fahrenheit, and additional compatible Ebola Virus Disease symptoms Patient denies exposure to infectious person. Patient denies travel to an Ebola-affected area in the 21 days before illness onset. No symptoms or risks identified at this time. Initial Sepsis Screen: Does the patient meet any 2 criteria? No. Patient's initial sepsis screen is negative. Does the patient have a suspected source of infection? No. Patient's initial sepsis screen is negative. Risk Assessment: Do you want to hurt yourself or someone else? Patient reports no desire to harm self or others. Onset of symptoms was October 16, 2024. 02:36 Method Of Arrival: Ambulatory 1 02:36 Acuity: EL 3 vc1 Triage Assessment: 02:40 General: Appears in no apparent distress. slender, well groomed, well developed, well vc1 nourished, Behavior is calm, cooperative, appropriate for age. Pain: Complains of pain in mid back area Pain does not radiate. EENT: No deficits noted. No signs and/or symptoms were reported regarding the EENT system. Neuro: Level of Consciousness is awake, alert, obeys commands, Oriented to person, place, time, situation, Appropriate for age. Cardiovascular: Heart tones S1 S2 present Capillary refill < 3 seconds Patient's skin is warm and dry. Respiratory: Airway is patent Respiratory effort is even, unlabored, Respiratory pattern is regular, symmetrical, Breath sounds are clear bilaterally. Denies shortness of breath. GI: No deficits noted. No signs and/or symptoms were reported involving the gastrointestinal system. : No deficits noted. No signs and/or symptoms were reported regarding the genitourinary system. Derm: Skin is intact, is healthy with good turgor, Skin is dry, Skin is normal, Skin temperature is warm. Musculoskeletal: Circulation, motion, and sensation intact. Range of motion: intact in all extremities. Historical: - Allergies: 02:38 No Known Allergies; vc1 - Home Meds: 02:51 atorvastatin 80 mg oral tablet [Active]; Brilinta 90 mg oral tablet 2 times per day vc1 [Active]; nebivolol 5 mg oral tablet [Active]; aspirin 81 mg Oral tablet,chewable [Active]; - PMHx: 02:38 Diabetes - NIDDM; resolved following weight loss; Hypertension; Myocardial infarction vc1 (October 09, 2024); - PSHx: 02:38 Cardiac stent; vc1 - Immunization history:: Client reports receiving the 2nd dose of the Covid vaccine, Flu vaccine is not up to date. - Infectious Disease History:: Denies. - Social history:: Smoking status: Patient/guardian denies using tobacco, but has a distant history of tobacco abuse, Patient/guardian denies using alcohol, but has a distant history of alcohol abuse. Screenin:40 [facility] ED Fall Risk Assessment (Adult) History of falling in the last 3 months, vc1 including since admission No falls in past 3 months (0 pts) Confusion or Disorientation No (0 pts) Intoxicated or Sedated No (0 pts) Impaired Gait No (0 pts) Mobility Assist Device Used No (0 pt) Altered Elimination No (0 pt) Score/Fall Risk Level 0 - 2 = Low Risk Oriented to surroundings, Maintained a safe environment, Educated pt \T\ family on fall prevention, incl call for assistance when getting out of bed, Hourly rounding (assess needs \T\ fall precautionary measures) done. Abuse screen: Denies threats or abuse. Nutritional screening: No deficits noted. Tuberculosis screening: No symptoms or risk factors identified. Assessment: 02:41 General: see triage for assessment. Neuro: Level of Consciousness is awake, alert, vc1 obeys commands, Oriented to person, place, time, situation, Appropriate for age. Cardiovascular: Reports pain in back similar to pain from previous [place]. 03:39 Reassessment: Patient appears in no apparent distress at this time. No changes from vc1 previously documented assessment. Patient and/or family updated on plan of care and expected duration. Pain level reassessed. Patient is alert, oriented x 3, equal unlabored respirations, skin warm/dry/pink. Vital Signs: 02:36 BP 128 / 72; Pulse 70; Resp 16; Temp 97.8; Pulse Ox 100% ; Weight 88.45 kg; Height 6 vc1 ft. 0 in. ; 03:00 BP 127 / 73; Pulse 65; Resp 16; Pulse Ox 99% ; vc1 05:00 BP 113 / 71; Pulse 60; Resp 16; Pulse Ox 97% ; vc1 02:36 Body Mass Index 26.45 (88.45 kg, 182.88 cm) vc1 ED Course: 02:14 Patient arrived in ED. jj6 02:14 Charanjit Bryant MD is Private Physician. jj6 02:18 Brigette Ring MD is Attending Physician. gb1 02:38 Triage completed. vc1 02:39 Arm band placed on right wrist. vc1 02:40 Patient has correct armband on for positive identification. Bed in low position. Call vc1 light in reach. Adult w/ patient. Provided Education on: plan of care. color television console monitor on. Pulse ox on. NIBP on. 02:48 Basic Metabolic Panel Sent. mm11 02:48 CBC with Diff Sent. mm11 02:48 LFT's Sent. mm11 02:48 Magnesium Sent. mm11 02:48 NT PRO-BNP Sent. mm11 02:48 Troponin HS Sent. mm11 02:51 Jeanie Graham RN is Primary Nurse. vc1 03:04 XRAY Chest (1 view) In Process Unspecified. EDMS 03:29 Notified ED physician of a critical lab result(s). troponin 160.8. vc1 03:41 Bruce Ponce MD is Hospitalizing Provider. gb1 05:00 No provider procedures requiring assistance completed. Patient admitted, IV remains in vc1 place. 07:10 Primary Nurse role handed off by Jeanie Graham, JOAQUINA bd 11:50 Ny Govea, JOAQUINA is Primary Nurse. db Administered Medications: 02:51 Drug: Aspirin PO Chewable Tablet 324 mg PO once; 81 mg tablets x 4 Route: PO; vc1 06:07 Follow up: Response: No adverse reaction vc1 03:50 Not Given (Patient Refused): morphineor iv 4 mg IVP once over 4 mins vc1 03:50 Not Given (Patient Refused): ondansetron 4 mg IVP once; over 2 minutes vc1 04:31 Drug: Ibuprofen PO 800 mg PO once Route: PO; vc1 06:07 Follow up: Response: No adverse reaction; Marked relief of symptoms vc1 Medication: 02:41 VIS not applicable for this client. vc1 Outcome: 03:42 Decision to Hospitalize by Provider. gb1 05:00 Admitted to ER Hold. Please see [facility] for further documentation. vc1 05:00 Condition: stable 05:00 Instructed on the need for admit, 14:39 Patient left the ED. db Signatures: Dispatcher [employer] EDMS Sena Silva Jennifer jj6 Jeanie Graham RN RN vc1 Ny Govea RN RN db Brigette Ring MD MD gb1 kimberly fournier mm11 Corrections: (The following items were deleted from the chart) 02:39 02:38 PSHx: None; vc1 vc1
--- NOTE | 2024-10-16 03:42 | EDPHYS ---
Physician Documentation [facility] Name: Pedro Mejia Age: 58 yrs Sex: Male : 1965 Arrival Date: 10/16/2024 Time: 02:11 Bed 16 Private MD: Charanjit Bryant B ED Physician Brigette Ring HPI: 10/16 03:22 This 58 yrs old Male presents to ER via Ambulatory with complaints of Back gb1 Pain. 03:22 58-year-old male with back pain. He had a stent placed on last , and though the gb1 pain now is radiating to his back is nowhere near where it was when initially presented for his NSTEMI. Patient denies any diaphoresis, cough, shortness of breath. He just states that he has more discomfort for the first time since his stent was placed. He does not smoke or drink he has a history of [id number] diabetes, hypertension, AL on October 09, 2024. He has been taking his medications since then as prescribed.. Historical: - Allergies: 02:38 No Known Allergies; vc1 - Home Meds: 02:51 atorvastatin 80 mg oral tablet [Active]; Brilinta 90 mg oral tablet 2 times per day vc1 [Active]; nebivolol 5 mg oral tablet [Active]; aspirin 81 mg Oral tablet,chewable [Active]; - PMHx: 02:38 Diabetes - NIDDM; resolved following weight loss; Hypertension; Myocardial infarction vc1 (October 09, 2024); - PSHx: 02:38 Cardiac stent; vc1 - Immunization history:: Client reports receiving the 2nd dose of the Covid vaccine, Flu vaccine is not up to date. - Infectious Disease History:: Denies. - Social history:: Smoking status: Patient/guardian denies using tobacco, but has a distant history of tobacco abuse, Patient/guardian denies using alcohol, but has a distant history of alcohol abuse. Exam: 03:22 Constitutional: This is a well developed, well nourished patient who is awake, alert, gb1 and in no acute distress. Head/Face: Normocephalic, atraumatic. Eyes: Pupils equal round and reactive to light, extra-ocular motions intact. Lids and lashes normal. Conjunctiva and sclera are non-icteric and not injected. Cornea within normal limits. Periorbital areas with no swelling, redness, or edema. ENT: Nares patent. No nasal discharge, no septal abnormalities noted. Tympanic membranes are normal and external auditory canals are clear. Oropharynx with no redness, swelling, or masses, exudates, or evidence of obstruction, uvula midline. Mucous membranes moist. Neck: Trachea midline, no thyromegaly or masses palpated, and no cervical lymphadenopathy. Supple, full range of motion without nuchal rigidity, or vertebral point tenderness. No Meningismus. Chest/axilla: Normal chest wall appearance and motion. Nontender with no deformity. No lesions are appreciated. Cardiovascular: Regular rate and rhythm with a normal S1 and S2. No gallops, murmurs, or rubs. Normal PMI, no JVD. No pulse deficits. Respiratory: Lungs have equal breath sounds bilaterally, clear to auscultation and percussion. No rales, rhonchi or wheezes noted. No increased work of breathing, no retractions or nasal flaring. Abdomen/GI: Soft, non-tender, with normal bowel sounds. No distension or tympany. No guarding or rebound. No evidence of tenderness throughout. Back: No spinal tenderness. No costovertebral tenderness. Full range of motion. Skin: Warm, dry with normal turgor. Normal color with no rashes, no lesions, and no evidence of cellulitis. MS/ Extremity: Pulses equal, no cyanosis. Neurovascular intact. Full, normal range of motion. Vital Signs: 02:36 BP 128 / 72; Pulse 70; Resp 16; Temp 97.8; Pulse Ox 100% ; Weight 88.45 kg; Height 6 vc1 ft. 0 in. ; 03:00 BP 127 / 73; Pulse 65; Resp 16; Pulse Ox 99% ; vc1 05:00 BP 113 / 71; Pulse 60; Resp 16; Pulse Ox 97% ; vc1 02:36 Body Mass Index 26.45 (88.45 kg, 182.88 cm) vc1 MDM: 02:22 Medical Screening Exam initiated gb 03:42 Data reviewed: vital signs, nurses notes. 03:42 ED course: 58-year-old male status post left heart cath with PCI x 1 here gb1 with chest pain rating to the back concern for anginal equivalent I will admit him to the hospital to be evaluated by cardiology. He has some nonspecific T wave changes anteriorly and a troponin that is expectedly elevated at 160.5. Patient admitted by Dr. Ponce to the telemetry abs unit.. 10/16 02:27 Order name: Basic Metabolic Panel; Complete Time: 03:29 gb1 10/16 02:27 Order name: CBC with Diff; Complete Time: 03:29 gb1 10/16 02:27 Order name: LFT's; Complete Time: 03:29 gb1 10/16 02:27 Order name: Magnesium; Complete Time: 03:29 gb1 10/16 02:27 Order name: NT PRO-BNP; Complete Time: 03:29 gb1 10/16 02:27 Order name: PT-INR; Complete Time: 03:29 gb1 10/16 02:27 Order name: Troponin HS; Complete Time: 03:29 gb1 10/16 05:16 Order name: Troponin High Sensitivity [facility] 10/16 05:16 Order name: Troponin High Sensitivity [facility] 10/16 05:16 Order name: Troponin High Sensitivity [facility] 10/16 05:16 Order name: Troponin High Sensitivity [facility] 10/16 05:16 Order name: Troponin High Sensitivity [facility] 10/16 12:26 Order name: Troponin High Sensitivity [facility] 10/16 02:27 Order name: XRAY Chest (1 view) [facility] 10/16 05:16 Order name: Echo with Doppler [facility] 10/16 05:16 Order name: CONS Physician Consult EDMD 10/16 02:27 Order name: Cardiac monitoring; Complete Time: 02:42 gb1 10/16 02:27 Order name: EKG - Nurse/Tech; Complete Time: 02:42 gb1 10/16 02:27 Order name: IV Saline Lock; Complete Time: 02:42 gb1 10/16 02:27 Order name: Labs collected and sent; Complete Time: 02:42 gb1 10/16 02:27 Order name: O2 Per Protocol; Complete Time: 02:42 gb1 10/16 02:27 Order name: O2 Sat Monitoring; Complete Time: 02:42 gb1 Administered Medications: 02:51 Drug: Aspirin PO Chewable Tablet 324 mg PO once; 81 mg tablets x 4 Route: PO; vc1 06:07 Follow up: Response: No adverse reaction vc1 03:50 Not Given (Patient Refused): morphineor iv 4 mg IVP once over 4 mins vc1 03:50 Not Given (Patient Refused): ondansetron 4 mg IVP once; over 2 minutes vc1 04:31 Drug: Ibuprofen PO 800 mg PO once Route: PO; vc1 06:07 Follow up: Response: No adverse reaction; Marked relief of symptoms vc1 Disposition Summary: 10/16/24 03:42 Hospitalization Ordered Notes: Hospitalization Status: Observation gb1 Provider: Bruce Ponce gb1 Condition: Stable gb1 Problem: an acute exacerbation gb1 Symptoms: have worsened gb1 Bed/Room Type: Standard [facility] Location: [facility] ER HOLD(10/16/24 13:49) Room Assignment: ERHOLD-(10/16/24 13:49) Diagnosis - Chest pain, unspecified gb1 Forms: - Medication Reconciliation Form gb1 - SBAR form gb1 - Leadership Thank You Letter gb1 Signatures: Dispatcher [employer] EDMS Sena Silva Vanessa, RN RN vc1 Brigette Ring MD MD gb1 Corrections: (The following items were deleted from the chart) 02:27 02:27 BASIC METABOLIC PANEL+C.LAB.BRZ ordered. EDMS EDMS 02:27 02:27 CBC+H.LAB.BRZ ordered. EDMS EDMS 02:27 02:27 HEPATIC FUNCTION+C.LAB.BRZ ordered. EDMS EDMS 02:27 02:27 MAGNESIUM+C.LAB.BRZ ordered. EDMS EDMS 02:27 02:27 PROBNP+C.LAB.BRZ ordered. EDMS EDMS 02:27 02:27 PROTIME (+INR)+COAG.LAB.BRZ ordered. EDMS EDMS 02:27 02:27 Troponin High Sensitivity+C.LAB.BRZ ordered. EDMS EDMS 02:27 02:27 Chest Single View+RAD.RAD.BRZ ordered. EDMD EDMS 02:39 02:38 PSHx: None; vc1 vc1 03:28 03:22 Constitutional: This is a well developed, well nourished patient who is awake, gb1 alert, and in no acute distress. Head/Face: Normocephalic, atraumatic. Eyes: Pupils equal round and reactive to light, extra-ocular motions intact. Lids and lashes normal. Conjunctiva and sclera are non-icteric and not injected. Cornea within normal limits. Periorbital areas with no swelling, redness, or edema. ENT: Nares patent. No nasal discharge, no septal abnormalities noted. Tympanic membranes are normal and external auditory canals are clear. Oropharynx with no redness, swelling, or masses, exudates, or evidence of obstruction, uvula midline. Mucous membranes moist. Neck: Trachea midline, no thyromegaly or masses palpated, and no cervical lymphadenopathy. Supple, full range of motion without nuchal rigidity, or vertebral point tenderness. No Meningismus. Chest/axilla: Normal chest wall appearance and motion. Nontender with no deformity. No lesions are appreciated. Cardiovascular: Regular rate and rhythm with a normal S1 and S2. No gallops, murmurs, or rubs. Normal PMI, no JVD. No pulse deficits. Respiratory: Lungs have equal breath sounds bilaterally, clear to auscultation and percussion. No rales, rhonchi or wheezes noted. No increased work of breathing, no retractions or nasal flaring. Abdomen/GI: Soft, non-tender, with normal bowel sounds. No distension or tympany. No guarding or rebound. No evidence of tenderness throughout. Back: No spinal tenderness. No costovertebral tenderness. Full range of motion. Skin: Warm, dry with normal turgor. Normal color with no rashes, no lesions, and no evidence of cellulitis. MS/ Extremity: Pulses equal, no cyanosis. Neurovascular intact. Full, normal range of motion. Neuro: Awake and alert, GCS 15, oriented to person, place, time, and situation. Cranial nerves II-XII grossly intact. Motor strength 5/5 in all extremities. Sensory grossly intact. Cerebellar exam normal. Normal gait. gb1 05:48 03:42 Telemetry/MedSurg (observation) gb1 vc1 05:48 03:42 gb1 vc1 12:26 05:48 [facility] ER HOLD vc1 bd 12:26 05:48 ERHOLD- vc1 bd 12:30 12:26 Telemetry/MedSurg (observation) bd bd 12:30 12:26 217 bd bd 13:30 12:30 [facility] ER HOLD bd bd 13:30 12:30 ERHOLD- bd bd 13:49 13:30 Telemetry/MedSurg (observation) bd 49 13:30 414 bd bd
[2024-10-16] MEDS ORDERED: ONDANSETRON 4 MG/2 ML VIAL ONE (03:43)
[2024-10-16] MEDS ORDERED: MORPHINE 4 MG/ML SYR ONE (03:43)
[2024-10-16] MEDS ORDERED: IBUPROFEN 400 MG TAB ONE (04:25)
[2024-10-16] MEDS ORDERED: ALPRAZOLAM 0.25 MG TABLET PO PRN (05:10)
[2024-10-16] MEDS ORDERED: MORPHINE 4 MG/ML SYR IV PRN (05:10)
[2024-10-16] MEDS ORDERED: ACETAMINOPHEN 500 MG TAB PO PRN (05:10)
[2024-10-16] MEDS ORDERED: NITROGLYCERIN 0.4 MG/TAB SL PRN (05:10)
--- NOTE | 2024-10-16 05:22 | P.HP ---
Patient History Date of Service: 10/16/24 Reason for admission: NSTEMI History of Present Illness: 58-year-old male with a past medical history of MD (stent), diet-controlled diabetes, hypertension, presenting with chest pain that began earlier tonight. The pain radiates to the back. He had a heart cath approximately 7 days ago here at [facility] with Dr. Slater. He states the pain is waxing and waning. He was told by his rehabilitation assistant if he has any more chest pain that he should come straight to the emergency room. He states his diabetes has been controlled with his diet. He does not take insulin. He denies fevers and shortness of breath. He initially thought the pain was from sleeping in the wrong position. He works at a [employer]. He denies any drug use. Allergies No Known Allergies Allergy (Verified 10/09/24 23:20) Home Medications: Aspirin [Aspirin EC 81 MG] 81 mg PO DAILY #30 tab 10/11/24 Atorvastatin Calcium [Lipitor] 80 mg PO BEDTIME #30 tab 10/11/24 Ticagrelor [Brilinta*] 90 mg PO BID #60 tab 10/11/24 Nebivolol HCl [Bystolic] 5 mg PO DAILY 10/16/24 - Past Medical/Surgical History Diabetic: No -: HTN -: former ETOH abuse -: GERD -: hyperlipidemia - Family History Father -: Stroke Notes: ETOH Mother -: Cancer Notes: breast cancer. also sister - Social History Alcohol use: Yes CD- Drugs: No Caffeine use: Yes Review of Systems General: Unremarkable Eyes: Unremarkable ENT: Unremarkable Respiratory: Unremarkable Cardiovascular: Chest Pain Gastrointestinal: Unremarkable Genitourinary: Unremarkable Musculoskeletal: Unremarkable Integumentary: Unremarkable Neurological: Unremarkable Lymphatics: Unremarkable Physical Examination - Physical Exam General: Alert, In no apparent distress HEENT: Atraumatic, Normocephalic Neck: Supple Respiratory: Clear to auscultation bilaterally, Normal air movement Cardiovascular: No edema, Normal pulses Capillary refill: <2 Seconds Gastrointestinal: Normal bowel sounds, Soft and benign Musculoskeletal: No clubbing, No swelling Integumentary: No rashes, No breakdown Neurological: Normal speech, Normal strength at 5/5 x4 extr Lymphatics: No axilla or inguinal lymphadenopathy - Studies Laboratory Data (last 24 hrs) 10/16/24 10/16/2425 02:43 02:43 02:43 WBC 8.60 Hgb 13.1 L Hct 39.0 L Plt Count 569 H PT 12.5 INR 1.10 Sodium 139 Potassium 4.0 BUN 27 H Creatinine 0.88 Glucose 107 H Magnesium 1.9 Total Bilirubin 0.6 AST 23 ALT 36 Alkaline Phosphatase 45 Assessment and Plan - Plan NSTEMI CAD status post PCI to LAD Heart failure with preserved ejection Diet-controlled diabetes Hypertension Hyperlipidemia Admit to floor Consult cardiology EKG reviewed anterior ischemic change Trend troponins Start therapeutic Lovenox Continue aspirin, Brilinta, statin Carbohydrate restricted diet As needed nitroglycerin As needed morphine Daily weights, strict I's and O's, fluid and sodium restriction DVT prophylaxis with Lovenox - Advance Directives Does patient have a Living Will: No Does patient have a Durable POA for Healthcare: No
--- NOTE | 2024-10-16 05:37 | RAD REPORT ---
CLINICAL HISTORY: Chest pain. COMPARISON: None. TECHNIQUE: XR CHEST 1 VIEW 10/16/2024 2:27 AM CDT FINDINGS: Cardiac silhouette is normal in size. Lungs are clear without consolidation, atelectasis, mass or marcel ma. There is no pleural effusion. There is no pneumothorax. There are no acute osseous findings. IMPRESSION: Clear lungs. Electronically signed by: Feroz Mulligan MD 10/16/2024 04:43 AM CDT RP Due to temporary technical issues with the PACS/ObjectVideo reporting system, reports are being calvin d by the in-house radiologist without review as a courtesy to ensure prompt reporting the interpreting radiologist is fully responsible for the content of the report. Transcribed Date/Time: 10/16/2024 5:37 AM
[2024-10-16 05:58] VITALS: BMI 26.4
[2024-10-16] MEDS: NEBIVOLOL HCL 5 MG TAB PO SCH (06:01)
[2024-10-16] MEDS: ASPIRIN EC 81 MG TAB PO SCH (06:02)
[2024-10-16] MEDS: TICAGRELOR 90 MG TABLET PO SCH (06:02)
[2024-10-16] MEDS ORDERED: ENOXAPARIN 100 MG/ML SYR SQ ONE (08:06)
[2024-10-16] MEDS: ENOXAPARIN 100 MG/ML SYR SQ SCH (09:00)
--- NOTE | 2024-10-16 12:17 | P.CNS ---
Date of Consult: 10/16/24 Chief Complaint: NSTEMI History of Present Illness: Patient with PMH of CAD, recent PCI LAD with WENDI, presented with back pain that woke him up from sleep, denies chest pain, no palpitations, no syncope. Allergies No Known Allergies Allergy (Verified 10/09/24 23:20) Home medications list reviewed: Yes Home Medications: Aspirin [Aspirin EC 81 MG] 81 mg PO DAILY #30 tab 10/11/24 Atorvastatin Calcium [Lipitor] 80 mg PO BEDTIME #30 tab 10/11/24 Ticagrelor [Brilinta*] 90 mg PO BID #60 tab 10/11/24 Nebivolol HCl [Bystolic] 5 mg PO DAILY 10/16/24 - Past Medical/Surgical History Diabetic: No -: HTN -: former ETOH abuse -: GERD -: hyperlipidemia -: Myocardial Infarction -: Cardiac Stent - Family History Father Medical History: Stroke Notes: ETOH Mother Medical History: Cancer Notes: breast cancer. also sister - Social History Alcohol use: Yes CD- Drugs: No Caffeine use: Yes Place of Residence: Home Review of Systems 10-point ROS is otherwise unremarkable Physical Examination Temp Pulse Resp BP Pulse Ox 68 127/73 10/16/24 06:01 10/16/24 06:01 General: Alert, In no apparent distress HEENT: Atraumatic, PERRLA, Mucous membr. moist/pink, EOMI, Sclerae nonicteric Neck: Supple, 2+ carotid pulse no bruit, No LAD, Without JVD or thyroid abnormality Respiratory: Clear to auscultation bilaterally, Normal air movement Cardiovascular: Regular rate/rhythm, Normal S1 S2 Gastrointestinal: Normal bowel sounds, No tenderness Musculoskeletal: No tenderness Integumentary: No rashes Neurological: Normal gait, Normal speech, Normal tone, Normal affect Lymphatics: No axilla or inguinal lymphadenopathy Laboratory Data (last 24 hrs) 10/16/24 10/16/24 10/16/24 02:43 02:43 02:43 WBC 8.60 Hgb 13.1 L Hct 39.0 L Plt Count 569 H PT 12.5 INR 1.10 Sodium 139 Potassium 4.0 BUN 27 H Creatinine 0.88 Glucose 107 H Magnesium 1.9 Total Bilirubin 0.6 AST 23 ALT 36 Alkaline Phosphatase 45 - Problems (1) HTN (hypertension) Current Visit: Yes Status: Acute Plan: continue Nebivolol continue to monitor (2) HLD (hyperlipidemia) Current Visit: Yes Status: Acute Plan: continue lipitor 80 lipid panel in 6-8 weeks (3) Chest pain Onset Date: 10/03/16 Current Visit: No Status: Acute Plan: Patient with recent NSTEMI s/p PCI LAD with good results, troponin leak is most likely down trending from recent hospital admission for the NSTEMI get one more troponin, if flat or down trending then no further cardiac work up needed. continue ASA 81 mg daily Continue Brilinta 90 mg po BID
--- NOTE | 2024-10-16 12:33 | EKG ---
Test Date: 2024-10-16 Test Time: 02:33:42 Sample Examiner: CHRISTIE MEASUREMENT RESULTS: Intervals: Rate: 67 NJ: 126 QRSD: 100 QT: 416 QTc: 439 [place]: P: 59 NJ: 126 QRS: 67 T: 87 INTERPRETIVE STATEMENTS: Normal sinus rhythm T wave abnormality, consider anterior ischemia Abnormal ECG Compared to ECG 10/09/2024 23:36:54 T-wave abnormality now present ST (T wave) deviation no longer present Possible ischemia still present Electronically Signed On 10-16-24 12:32:31 CDT by Ryan Montaño
[2024-10-16 15:20] VITALS: TEMP 97.8
[2024-10-16 15:23] VITALS: BP 113/71; O2SAT 97
[2024-10-16] MEDS ORDERED: ATORVASTATIN 80 MG TAB PO SCH (21:00)
--- NOTE | 2024-10-17 06:37 | P.DS ---
Admission Date: 10/16/24 Discharge Date: 10/16/24 Disposition: DC HOME/HOME HEALTH CARE Discharge Condition: GOOD Reason for Admission: NSTEMI Consultations: Cardiology - Dr. Montaño Brief History of Present Illness: 58 yo M, PMH: NH (stent), diet-controlled diabetes, hypertension, HLD Patient presenting with chest pain that began earlier tonight. The pain radiates to the back. He had a heart cath approximately 7 days ago here at [facility] with Dr. Slater. He states the pain is waxing and waning. He was told by his presser first if he has any more chest pain that he should come straight to the emergency room. He states his diabetes has been controlled with his diet. He does not take insulin. He denies fevers and shortness of breath. He initially thought the pain was from sleeping in the wrong position. He works at a [employer]. He denies any drug use. Hospital Course: Problem List NSTEMI CAD s/p LAD PCI (10/10/24) Chronic diastolic CHF (55-60%EF) Diet-controlled diabetes Hypertension Hyperlipidemia Physician discharge instructions: Patient presents with chest pain, similar to hospitalization 1 week ago with si milar symptoms. He underwent left heart cath 10/10/[address] Slater and had PCI intervention to LAD done (full report below). Troponin's were mildly elevated but trended down - much lower and suspect continuing to improve from last hospitalization when his troponin's were much higher (peaked at 7014 on 10/09/24). EKG was without any STEMI criteria. The rest of his lab work on admission was unremarkable. Patient had recent echo done 1 week ago which noted 55-60% EF with normal wall motion, grade 1 diastolic dysfunction, trace mitral regurgitation. Patient was feeling better. Dr. Montaño evaluated the patient and felt patient did not require any further inpatient workup/eval, and was deemed stable for discharge. Recommend following up with primary presser first in next 2-4 weeks for further management. Medications: continue home meds as previously prescribed. Follow up: PCP 3-5 days Cardiology in 2-4 weeks Please call to schedule / confirm appointments [facility] report from last hospitalization (10/10/24) Findings: 1. Left main, large and normal. 2. LAD, severe proximal 90% stenosis, status post successful PCI as above. Rest of the LAD is normal, normal diagonal branches. 3. Left circumflex, very large and dominant and normal. 4. RCA, small, nondominant with luminal irregularities. Physical Exam: GEN: Alert, oriented, NAD CV: Regular rate and rhythm, no edema Pulm: Nonlabored respirations on room air, clear bilaterally ABD: soft, nontender, nondistended Neuro: Normal speech, normal affect Vital Signs/Physical Exam: Temp Pulse Resp BP Pulse Ox 97.8 F 60 16 113/71 99 10/16/24 15:18 10/16/24 15:22 10/16/24 15:22 10/16/24 15:22 10/16/24 12:00 Laboratory Data at Discharge: WBC 8.60 thou/uL (4.3-10.9) 10/16/24 02:43 Hgb 13.1 g/dL (13.6-17.9) L 10/16/24 02:43 Hct 39.0 % (39.6-49.0) L 10/16/24 02:43 Plt Count 569 thou/uL (152-406) H 10/16/24 02:43 PT 12.5 SECONDS (10-13.0) 10/16/24 02:43 INR 1.10 10/16/24 02:43 Sodium 139 mEq/L (136-145) 10/16/24 02:43 Potassium 4.0 mEq/L (3.5-5.1) 10/16/24 02:43 BUN 27 mg/dL (7-18) H 10/16/24 02:43 Creatinine 0.88 mg/dL (0.70-1.30) 10/16/24 02:43 Glucose 107 mg/dL (74-106) H 10/16/24 02:43 Magnesium 1.9 mg/dL (1.6-2.4) 10/16/24 02:43 Total Bilirubin 0.6 mg/dL (0.2-1.0) 10/16/24 02:43 AST 23 U/L (15-37) 10/16/24 02:43 ALT 36 U/L (16-61) 10/16/24 02:43 Alkaline Phosphatase 45 U/L (45-117) 10/16/24 02:43 Home Medications: Aspirin [Aspirin EC 81 MG] 81 mg PO DAILY #30 tab 10/11/24 Atorvastatin Calcium [Lipitor] 80 mg PO BEDTIME #30 tab 10/11/24 Ticagrelor [Brilinta*] 90 mg PO BID #60 tab 10/11/24 Nebivolol HCl [Bystolic*] 5 mg PO DAILY 10/16/24 Physician Discharge Instructions: Physician discharge instructions: Patient presents with chest pain, similar to hospitalization 1 week ago with similar symptoms. He underwent left heart cath 10/10/[address] Slater and had PCI intervention to LAD done (full report below). Troponin's were mildly elevated but trended down - much lower and suspect continuing to improve from last hospitalization when his troponin's were much higher (peaked at 7014 on 10/09/24). EKG was without any STEMI criteria. The rest of his lab work on admission was unremarkable. Patient had recent echo done 1 week ago which noted 55-60% EF with normal wall motion, grade 1 diastolic dysfunction, trace mitral regurgitation. Patient was feeling better. Dr. Montaño evaluated the patient and felt patient did not require any further inpatient workup/eval, and was deemed stable for discharge. Recommend following up with primary presser first in next 2-4 weeks for further management. Medications: continue home meds as previously prescribed. Follow up: PCP 3-5 days Cardiology in 2-4 weeks Please call to schedule / confirm appointments [facility] report from last hospitalization (10/10/24) Findings: 1. Left main, large and normal. 2. LAD, severe proximal 90% stenosis, status post successful PCI as above. Rest of the LAD is normal, normal diagonal branches. 3. Left circumflex, very large and dominant and normal. 4. RCA, small, nondominant with luminal irregularities. Followup: Charbel Corey MD [Primary Care Provider] - Time spent managing pt's care (in minutes): 45
== END 2024-10-16 14:25 | disposition home health service (06) ==
LOC: ER 02:11 → ERHOLD 05:10 → INTOOBSV 05:10 → ERHOLD 07:55
PROVIDERS: ADMIT Family Medicine; ATTEND Hospitalist
DX: I21.4 Non-ST elevation (NSTEMI) myocardial infarction (principal); I50.32 Chronic diastolic (congestive) heart failure; E11.9 Type 2 diabetes mellitus without complications; R07.9 Chest pain, unspecified; I10 Essential (primary) hypertension; R79.89 Other specified abnormal findings of blood chemistry; I25.10 Atherosclerotic heart disease of native coronary artery without angina pectoris; E78.5 Hyperlipidemia, unspecified; Z79.82 Long term (current) use of aspirin; Z98.890 Other specified postprocedural states; Z95.5 Presence of coronary angioplasty implant and graft
CPT/HCPCS: 93005; 85025; 80048; 36415; 83735; 85610; 80076; 84484 ×3; 83880; 71045; J1650; G0378; J2405